=== PATIENT | male | born 1950 | race Caucasian/White ===

== ENCOUNTER → 2018-09-06 | Outpatient (CLI) | payer MEDICARE | END | disposition home or self-care (01) | LOC: LABPAT 09:47 | PROVIDERS: ATTEND Orthopaedic Surgery | DX: Z01.812 Encounter for preprocedural laboratory examination (principal) | CPT/HCPCS: 87070 ==

== ENCOUNTER 2018-09-13 09:19 | Inpatient (IN) | payer MEDICARE ==
[2018-09-09 10:50] VITALS: BMI 40.7
--- NOTE | 2018-09-12 16:11 | HP ---
HISTORY AND PHYSICAL REASON FOR ADMISSION: Surgery 09/13/2018 Caio Parra is a 68-year-old patient seen with symptomatic left knee osteoarthritis. We discussed treatment options with him. He elected to proceed with left total knee arthroplasty. Consent regarding the procedure was obtained. Medical clearance was provided by Dr. Elia Sanchez. Cardiac clearance was provided by Dr. Dunlap. PAST MEDICAL HISTORY: Cardiovascular disease, hypertension, insulin-dependent diabetes. PAST SURGICAL HISTORY: Cardiac catheterization with stent insertion, trigger finger release, cataract surgery. DAILY MEDICATIONS: Atorvastatin, Humalog insulin, isosorbide, losartan, Xarelto. ALLERGIES: AUGMENTIN, BIAXIN. SOCIAL HISTORY: Patient denies tobacco use. PHYSICAL EXAMINATION: Evaluation of the left knee is range of motion negative 2 to 120 degrees. Tenderness medial joint line. Crepitus medial patellofemoral compartments range of motion. Ligaments stable. Hip rotation without pain. Distal neurovascular exam intact. RADIOGRAPHS: Radiographs of the left knee revealed moderately severe medial compartment osteoarthritis and mild patellofemoral compartment osteoarthritis. IMPRESSION: 1. Left knee osteoarthritis. 2. Cardiovascular disease. 3. Insulin-dependent diabetes. 4. Hyperlipidemia. PLAN: Left total knee arthroplasty. Surgery scheduled for 09/13/2018. MMODL / IJN: [id number] /
[~2018-09-13 09:19] MED LIST: ACETAMINOPHEN TAB 500 MG TAB PO ONE; DEXAMETHASONE SOD PHOSPHATE 10 MG/ML 1 ML VIAL IV ONE; HYDROmorphone 0.5 MG/0.5 ML SYRINGE IVP PRN; LACTATED RINGERS 1,000 ML IV SCH; LIDOCAINE 1% 20 ML VIAL (10MG/ML) FOR IV START INTRADERMA PRN; MELOXICAM 7.5 MG TAB PO ONE; MIDAZOLAM (PF) 2 MG/2 ML VIAL IV PRN; ONDANSETRON 4 MG/2 ML VIAL IVP ONE; SCOPOLAMINE 1.5MG/72HR PATCH TRANSDERM ONE; TRANEXAMIC ACID 1,000 MG in SODIUM CHLORIDE 0.9% 50 ML IVPB ONE; VANCOMYCIN 1,750 MG in SODIUM CHLORIDE 0.9% 500 ML 500 ML IVPB ONE; ceFAZolin IN SWFI 2 GM/20 ML SYRINGE IVP ONE
[2018-09-13] MEDS ORDERED: ROPIVACAINE 1,100 MG, SODIUM CHLORIDE 0.9% 500 ML 330 ML MISCELLANE PRN ×4 (10:32→13:45)
[2018-09-13 11:29] LABS: Glucose,Whole Blood 183 mg/dL (75-99)
[2018-09-13] MEDS ORDERED: SUCCINYLCHOLINE CHLORIDE 100 MG/5 ML SYR IV ONE (13:00)
[2018-09-13] MEDS ORDERED: ONDANSETRON 4 MG/2 ML VIAL ONE (13:00)
[2018-09-13] MEDS ORDERED: ePHEDrine SULFATE/0.9% NACL/PF 50 MG/5 ML SYRINGE IV ONE (13:00)
[2018-09-13] MEDS ORDERED: PROPOFOL 10 MG/ML 20 ML VIAL IV ONE (13:00)
[2018-09-13] MEDS ORDERED: fentaNYL (PF) 50 MCG/ML 2 ML AMP ONE (13:00)
[2018-09-13] MEDS ORDERED: MIDAZOLAM 2 MG/2 ML VIAL ONE (13:00)
[2018-09-13] MEDS ORDERED: HYDROmorphone (PF) 1 MG/ML ONE (13:00)
[2018-09-13] MEDS ORDERED: LIDOCAINE 1% INJ 10MG/ML (20 ML MDV) ONE (13:00)
[2018-09-13] MEDS ORDERED: ROPIVACAINE 246.25 MG, EPINEPHrine 0.5 MG, KETOROLAC 30 MG, cloNIDine HCL/PF 80 MCG, WA... MISCELLANE ONE ×5 (13:50)
--- NOTE | 2018-09-13 14:05 | P.ONQ ---
Anesthesiology Proc Note - PNB - Peripheral Nerve Block Performed Left Adductor Canal Infusion Time Out Performed: Yes Indication: Acute Post-Operative Pain, Dx/Pain Location (Left Knee Pain), Requested by physician Sedation Type: Sedate with meaningful contact maintained Preparation: Sterile Prep Position: Supine Catheter: Indwelling Needle Types: On-Q Needle Size: 100mm (4") Needle Gauge: 21 Technique: Ultrasound Injectate: 0.5% Ropivacaine (see comment for volume) (20ml) Blood Aspirated: No Pain Paresthesia on Injection Noted: No Resistance on Injection: Normal Events: Other (see comment) (atraumatic)
[2018-09-13 14:11] LABS: Glucose,Whole Blood 211 mg/dL (75-99)
[2018-09-13] MEDS ORDERED: ceFAZolin 3,000 MG in SODIUM CHLORIDE 0.9% IRRIGATIO 3,000 ML IRRIGATION ONE (14:37)
[2018-09-13] MEDS ORDERED: HYDROcodone/APAP 5-325MG 1 EACH TAB PO PRN (15:32)
[2018-09-13] MEDS ORDERED: HYDROmorphone 1 MG/ML 1 ML SYRINGE IVP PRN ×4 (15:32→18:33)
[2018-09-13] MEDS ORDERED: ONDANSETRON 4 MG/2 ML VIAL IVP PRN (15:32)
[2018-09-13] MEDS ORDERED: HYDROcodone/APAP 7.5-325MG 1 EACH TAB PO PRN (15:32)
[2018-09-13] MEDS ORDERED: NALOXONE 0.4 MG/ML 1 ML VIAL IV PRN (15:32)
--- NOTE | 2018-09-13 15:32 | P.OP ---
Date of Procedure: 09/13/18 Preoperative Diagnosis: Left knee osteoarthritis Postoperative Diagnosis: Left knee osteoarthritis Procedure(s) Performed: Left total knee arthroplasty Implants: 1. Microport evolution size 7 left CS cemented femur 2. Microport evolution size 7 left cemented tibial baseplate 3. Microport evolution MP size 7 left 10 mm polyethylene insert 4. Microport advance 41 millimeter all polyethylene cemented patella Anesthesia: GETA, regional (Adductor canal catheter), local Surgeon: Paco Martinez Ssrs Report Developer #1: Dontrell Barcenas Estimated Blood Loss (ml): 50 Pathology: other (Bone) Condition: stable Disposition: PACU Indications for Procedure: 68-year-old patient seen was symptomatic left knee osteoarthritis. After treatment options were discussed, he elected to proceed with total knee arthroplasty. Operative Findings: See description of procedure Description of Procedure: Patient was taken to the operative suite after having an adductor canal catheter placed by the department of anesthesia. Patient underwent a general anesthetic by the department of anesthesia. Patient was given preoperative IV intake antibiotics and TXA. A well-padded tourniquet was placed about the left lower extremity. The lower extremity was then prepped and draped in the normal sterile orthopedic fashion. The extremity was elevated, a tourniquet was insufflated to 300. A standard anterior incision was made sharply through skin. Dissection was taken down through the subcutaneous soft tissues down to the extensor mechanism. A medial arthrotomy was performed, patella was everted and knee was flexed. There was advanced osteoarthritis noted. I introduced my distal intramedullary femoral drill. I then introduced the distal femoral cutting jig. Fitz PHAM secured the cutting jig with 2 pins. I held retractors in position while Fitz PHAM performed the distal femoral resection through the guide area we now removed her distal femoral cutting guide. We now placed our 4-in-1 femoral cutting block and positioned and it was secured with 2 pins by Fitz PHAM while I held the block in position. The distal femoral finishing was now completed. A proximal tibial cutting guide was positioned. I held the guide in the appropriate position with both hands well Fitz PHAM inserted stabilizing pins into the guide. Proximal tibial cut was made. We now placed a trial femoral component into position, along with an appropriate size tibial tray and insert. We now took the knee through range of motion and had full extension good flexion and good overall soft tissue balance noted. The patella was everted and stabilized with 2 towel clips held by Fitz PHAM while I performed a flush with patellar quad tendon utilizing a fresh sawblade. We templated the patella, appropriate drill holes were made. An appropriate trial patella was positioned, knee was taken through full range of motion with the patella tracking very nicely. The trial patella was removed. Drill holes were made through the femoral component. All trial components were removed after marking off the appropriate rotation of the tibia. Retractors were now positioned along the proximal tibia. An appropriate keel punch was made with the appropriate size tibial guide by myself on Fitz PHAM assisted by holding retractors. At this point appropriate size implants were chosen and opened. The joint was irrigated copiously with pulse lavage mechanical irrigation. The posterior capsule was infiltrated with local analgesic. The wound was irrigated with pulse lavage mechanical irrigation. We mixed antibiotic methylmethacrylate. We placed the knee into flexion. We placed multiple retractors assisted by Fitz PHAM to expose the proximal tibia. Once the methyl methacrylate was ready, the tibial component was cemented into place removing any excess methylmethacrylate form by both myself and Fitz PHAM. The femoral component was cemented into place removing the removing any excess methylmethacrylate performed by both myself and Fitz PAHM. We then inserted the appropriate size polyethylene tibial insert. We made sure that it was locked into position. We took the knee into full extension, and then back in a flexion making sure we had removed any excess methylmethacrylate. The patellar component was then cemented down and secured with clamp. Excess methylmethacrylate removed. We kept the knee in full extension, patellar clamp in position until methylmethacrylate had hardened. Once it had hardened the patellar clamp was removed. The knee was taken through full range of motion. The patella tracked nicely. There was good soft tissue balancing. The tourniquet was now released. Additional hemostasis was achieved via electrocautery. A second gram of TXA was given. The wound again was irrigated with pulse lavage mechanical irrigation. The superficial soft tissues were infiltrated local analgesic. The extensor mechanism was repaired with Vicryl. We checked the repair with range of motion and it was stable. The subcutaneous soft tissues were repaired with Vicryl in layers. The skin was approximated with pernio/Dermabond. Sterile dressings were applied followed by loose web roll and Gama bandage. The patient was transferred to a bed, and taken to recovery in stable and satisfactory condition. Fitz PHAM assisted with this complex procedure.
[2018-09-13] MEDS ORDERED: INSULIN ASPART 100 UNIT/ML 1 ML 10 ML VIAL SQ ONE (16:09)
[2018-09-13 16:12] LABS: Glucose,Whole Blood 263 mg/dL (75-99)
--- NOTE | 2018-09-13 17:53 | XR ---
EXAMINATION TYPE: XR knee limited LT DATE OF EXAM: 09/13/2018 COMPARISON: NONE HISTORY: Stopped knee TECHNIQUE: 2 views FINDINGS: There is left knee prosthesis. Components are in anatomic position. IMPRESSION: No complicating process seen.
--- NOTE | 2018-09-13 18:44 | P.CONS ---
History of Present Illness - Reason for Consult Consult date: 09/13/18 Medical management Requesting physician: Paco Martinez - Chief Complaint Left knee pain - History of Present Illness 60-year-old male with past medical history of hypertension, diabetes, coronary artery disease status post 5 stents, atrial fibrillation, osteoarthritis of the knees presents to [facility] for elective left total knee replacement. Patient reports severe osteoarthritis in the left knee," [id number]" which prompted the patient to undergo surgical intervention. We are consulted for medical management postoperatively. Patient was seen and examined after his procedure. His is at bedside. Patient reports good pain control at this time. states that the patient just underwent surgery and is feeling groggy from the anesthesia. Pain is 2 out of 10 in severity. Past Medical History Past Medical History: Atrial Fibrillation, Coronary Artery Disease (CAD), Diabetes Mellitus, Hyperlipidemia, Hypertension, Osteoarthritis (OA), Renal Disease, Seizure Disorder Additional Past Medical History / Comment(s): HX OF SEIZURE X 1 (OVER 25 YEARS AGO.).,BLIND LEFT EYE., PATIENT STATES HOSPITALIZED AT [facility] FOR CHEST PAIN AND HEART CATH IN AUGUST 2018-STATES HE FOLLOWED UP WITH DR JACK . History of Any Multi-Drug Resistant Organisms: None Reported Past Surgical History: Heart Catheterization, Heart Catheterization With Stent, Orthopedic Surgery Additional Past Surgical History / Comment(s): trigger finger release, jhonny cataracts, left eye multiple surgeries after cataract removed, CARDIAC CATH WITH 5 STENTS , LEFT SHOULDER SURGERY. HEART CATH AUG 2018 Past Anesthesia/Blood Transfusion Reactions: Previous Problems w/ Anesthesia, Postoperative Nausea & Vomiting (PONV) Additional Past Anesthesia/Blood Transfusion Reaction / Comm: "hard time waking up" Date of Last Stent Placement:: 2003 Past Psychological History: No Psychological Hx Reported Smoking Status: Never smoker Past Alcohol Use History: Occasional Past Drug Use History: None Reported - Past Family History Mother Family Medical History: No Reported History Medications and Allergies Home Medications Medication Instructions Recorded Confirmed Type Aspirin 325 mg PO DAILY 10/22/15 09/13/18 History Atorvastatin Calcium [Lipitor] 80 mg PO HS 10/22/15 09/13/18 History Brimonidine Tartrate/Timolol 1 drop RIGHT EYE BID 10/22/15 09/13/18 History [Combigan 0.2%/0.5% Ophth Soln] Brinzolamide [Azopt 1% Ophth Susp] 1 drop RIGHT EYE BID 10/22/15 09/13/18 History Fish Oil/Dha/Epa [Fish Oil 1,200 1 each PO DAILY 10/22/15 09/13/18 History mg Fish Oil] Insulin Aspart [NovoLOG] 0 unit SQ ACHS PRN 10/22/15 09/13/18 History Insulin NPH Human Isophane 25 unit SQ BID 10/22/15 09/13/18 History [NovoLIN N] Isosorbide Mononitrate ER [Imdur] 60 mg PO DAILY 10/22/15 09/13/18 History Metoprolol Tartrate [Lopressor] 25 mg PO BID 10/22/15 09/13/18 History Multivitamins, Thera [Theragran] 1 each PO DAILY 10/22/15 09/13/18 History Vits A,C,E/Lutein/Minerals 1 each PO DAILY 10/22/15 09/13/18 History [Ocuvite with Lutein Tablet] Calcitriol 0.25 mcg PO JOSHUA 09/09/18 09/13/18 History Furosemide [Lasix] 20 mg PO DAILY 09/09/18 09/13/18 History Losartan [Cozaar] 50 mg PO DAILY 09/09/18 09/13/18 History Magnesium Oxide [Mag-Ox] 400 mg PO DAILY 09/09/18 09/13/18 History Rivaroxaban [Xarelto] 20 mg PO PC-SUPPER 09/09/18 09/13/18 History Allergies Allergy/AdvReac Type Severity Reaction Status Date / Time ampicillin Allergy "sleepy" Verified 09/13/18 16:26 clarithromycin [From Biaxin] Allergy "sleepy" Verified 09/13/18 16:26 Physical Exam Vitals: Vital Signs Temp Pulse Pulse Resp BP BP Pulse Ox 09/13/18 17:00 82 16 148/67 100 09/13/18 16:45 87 18 137/64 100 09/13/18 16:30 86 18 143/65 100 09/13/18 16:15 91 18 148/67 100 09/13/18 16:00 89 20 124/59 100 09/13/18 15:44 98.2 F 105 H 24 146/66 98 09/13/18 11:58 61 14 137/69 100 09/13/18 11:17 97.9 F 70 18 152/71 99 09/13/18 10:54 97.9 F 70 18 152/71 99 Intake and Output 09/13/18 09/13/18 09/13/18 06:59 14:59 22:59 Intake Total 1601 100 Output Total 50 Balance 1601 50 Intake: IV 1601 100 Output: Estimated Blood Loss 50 Other: Weight 125.191 kg General: [non toxic], [groggy], [appears at stated age] Derm: [warm], [dry] Head: [atraumatic], [normocephalic], [symmetric] Eyes: [EOMI], [no lid lag], [anicteric sclera] Mouth: [no lip lesion], [mucus membranes moist] Cardiovascular: [S1S2 reg], [no murmur], [positive DP pulse bilateral] Lungs: [CTA bilateral], [no rhonchi, no rales] , [no accessory muscle use] Abdominal: [soft], [ nontender to palpation], [no guarding], [no appreciable organomegaly] Ext: [no gross muscle atrophy], [no edema], [left knee wrapped] Psych: [Alert], [oriented], [appropriate affect] Results Labs: Abnormal Lab Results - Last 24 Hours (Table) 09/13/18 09/13/18 09/13/18 Range/Units 11:05 14:06 16:07 POC Glucose (mg/dL) 183 H 211 H 263 H (75-99) mg/dL Assessment and Plan Assessment: Assessment and Plan 1. L knee severe OA: s/p L total knee arthroplasty POD 0. Knee x-ray after the procedure show no complicating process. Pain management with [facility] 5 1 tab PRN for pain 1-5, [facility] 7.5 PRN for pain 6-10 and Dilaudid 0.5 mg IV Q3 PRN for breakthrough. Start Meloxicam 7.5 mg PO QD. Neurochecks. Elevated LLE. Weight bearing as per Ortho recommendations. Plans for home rehab as per patient. FU PT and OT consult, Orthopedic Sx 2. Diabetes Mellitus: POC glucose 263. Takes NPH 25 units BID with SSI. Will start sliding scale tonight, diet to fully resume tomorrow. Diabetic diet. Accuchecks. Hypoglycemic precautions. 3. Hypertension: BP 148/67. Continue Metoprolol 25 mg PO BID, Losartan 50 mg PO QD, Imdur 60 mg PO QD. Monitor vitals, adjust medications as necessary. 4. Atrial fibrillation: Rate controlled with Metoprolol 25 mg PO BID. Will resume AC with Xarelto when OK with Ortho. Telemetry monitoring. Keep K > 4 and Mg > 2. 5. CAD: s/p 5 stents. Will resume ASA when OK with Ortho. Restart Lipitor 80 mg PO QHS. Continue beta milan and ARB. 6. CKD 3: Follows Nephrology outPT. Restart Calcitriol 0.25 mg PO QSu. Avoid nephrotoxins. Daily BMP 7. DVT/GI Prophylaxis: Lovenox 30 mg SUBCUT BID.
[2018-09-13] MEDS: SODIUM CHLORIDE 0.9% 1,000 ML IV SCH (19:23)
[2018-09-13] MEDS: INSULIN ASPART 100 UNIT/ML 1 ML 10 ML VIAL SQ SCH ×2 (20:12→20:30)
[2018-09-13 20:22] LABS: Glucose,Whole Blood 302 mg/dL (75-99)
[2018-09-13] MEDS: METOPROLOL TARTRATE 25 MG TAB PO SCH (20:30)
[2018-09-13] MEDS: ATORVASTATIN 80 MG TAB PO SCH (20:30)
[2018-09-14] MEDS: SODIUM CHLORIDE 0.9% 1,000 ML IV SCH ×2 (05:57→15:59)
--- NOTE | 2018-09-14 07:02 | P.PN ---
Progress Note - Text Progress Note Date: 09/14/18 Patient is postop day 1 left total knee arthroplasty abductor canal catheter day #2. VAS is a 1 out of 10 in severity. Patient otherwise is some mild suprapatellar soreness. No motor sensory deficits. Has been up to ambulate with assistance, tolerating diet well. Plan is to continue with current therapy
[2018-09-14 07:33] LABS: Glucose,Whole Blood 402 mg/dL (75-99)
[2018-09-14] MEDS: INSULIN ASPART 100 UNIT/ML 1 ML 10 ML VIAL SQ SCH ×4 (07:54→20:48)
[2018-09-14] MEDS: FUROSEMIDE 20 MG TAB PO SCH (09:28)
[2018-09-14] MEDS: MELOXICAM 7.5 MG TAB PO SCH (09:28)
[2018-09-14] MEDS: ENOXAPARIN 30 MG/0.3 ML SYRINGE SQ SCH ×2 (09:28→20:47)
[2018-09-14] MEDS: ISOSORBIDE MONONITRATE ER 60 MG TAB.ER.24H PO SCH (09:28)
[2018-09-14] MEDS: METOPROLOL TARTRATE 25 MG TAB PO SCH ×2 (09:28→20:47)
[2018-09-14] MEDS: LOSARTAN 50 MG TAB PO SCH (09:28)
[2018-09-14 10:01] LABS: Basophils % (A) 0 %; Eosinophils % (A) 0 %; HGB 11.6 gm/dL (13.0-17.5); Lymphocytes # (A) 0.7 k/uL (1.0-4.8); Lymphocytes % (A) 6 %; MCH 28.8 pg (25.0-35.0); MCHC 31.5 g/dL (31.0-37.0); MCV 91.5 fL (80.0-100.0); Mean Platelet Volume 7.4; Monocytes # (A) 0.8 k/uL (0-1.0); Monocytes % (A) 6 %; Neutrophils # (A) 10.7 k/uL (1.3-7.7); Neutrophils % (A) 87 %; Platelet Count 202 k/uL (150-450); RBC 4.04 m/uL (4.30-5.90); RDW 13.1 % (11.5-15.5); WBC 12.3 k/uL (3.8-10.6)
[2018-09-14] MEDS: INSULIN NPH 300 UNIT/3 ML VIAL SQ SCH ×2 (11:13→20:49)
--- NOTE | 2018-09-14 11:13 | P.PN ---
Subjective Progress Note Date: 09/14/18 Principal diagnosis: Status post left total knee arthroplasty Patient seen today resting in his hospital bed, his is present at bedside. He appears comfortable. He is ambulating minimally with therapy. He has urinated on its own. He denies any chest pain or shortness of breath. Objective - Vital Signs Vital signs: Vital Signs Temp 98.3 F 09/14/18 08:21 Pulse 100 09/14/18 08:21 Resp 14 09/14/18 08:21 BP 138/68 09/14/18 08:21 Pulse Ox 98 09/14/18 08:21 Intake & Output 09/13/18 09/14/18 09/14/18 18:59 06:59 18:59 Intake Total 1701 1040 Output Total 50 Balance 1651 1040 Weight 125.191 kg Intake: IV 1701 Intake, IV Titration 1040 Amount Sodium Chloride 0.9% 1, 1040 000 ml @ 80 mls/hr IV . [id number] [facility] Rx#:[id number] Output: Estimated Blood Loss 50 Other: Voiding Method Urinal # Voids 2 - Exam Lower extremity: Incision is clean, dry, and intact. The exofin fusion tape is in good condition. There is minimal soft tissue swelling and ecchymosis surrounding the medial and lateral aspects of the incision. Calf is soft, no tenderness with palpation. Plantar flexion, dorsiflexion, EHL, FHL are intact. Sensory exam to light touch throughout the extremity is intact, dorsal pedis pulses 2+. - Labs CBC & Chem 7: 09/14/18 09:36 Labs: Abnormal Lab Results - Last 24 Hours (Table) 09/13/18 09/13/18 09/13/18 Range/Units 11:05 14:06 16:07 WBC (3.8-10.6) k/uL RBC (4.30-5.90) m/uL Hgb (13.0-17.5) gm/dL Hct (39.0-53.0) % Neutrophils # (1.3-7.7) k/uL Lymphocytes # (1.0-4.8) k/uL POC Glucose (mg/dL) 183 H 211 H 263 H (75-99) mg/dL 09/13/18 09/14/18 09/14/18 Range/Units 20:11 07:31 09:36 WBC 12.3 H (3.8-10.6) k/uL RBC 4.04 L (4.30-5.90) m/uL Hgb 11.6 L (13.0-17.5) gm/dL Hct 37.0 L (39.0-53.0) % Neutrophils # 10.7 H (1.3-7.7) k/uL Lymphocytes # 0.7 L (1.0-4.8) k/uL POC Glucose (mg/dL) 302 H 402 H (75-99) mg/dL Assessment and Plan Plan: Assessment: Postoperative day #1 status post left total knee arthroplasty Plan: Pain control, continue current medication GI and DVT prophylaxis, patient received Lovenox 30 mg subcu today. We'll restart his aspirin and Xarelto tomorrow Daily dressing changes Continue her physical therapy Medical recommendations Discharge planning: Patient likely be discharged home tomorrow Time with Patient: Less than 30
--- NOTE | 2018-09-14 11:42 | P.PN ---
Subjective Progress Note Date: 09/14/18 Principal diagnosis: Medical management after left knee replacement Patient seen and examined. No acute events overnight. Patient reports pain being well controlled, currently 0 out of 10. Patient states that he is concerned about his blood sugar, found it was 400 this morning. He denies any confusion, chest pain, shortness of breath or palpitations. Objective - Vital Signs Vital signs: Vital Signs Temp 98.3 F 09/14/18 08:21 Pulse 100 09/14/18 08:21 Resp 14 09/14/18 08:21 BP 138/68 09/14/18 08:21 Pulse Ox 98 09/14/18 08:21 Intake & Output 09/13/18 09/14/18 09/14/18 18:59 06:59 18:59 Intake Total 1701 1040 240 Output Total 50 Balance 1651 1040 240 Weight 125.191 kg 125.191 kg Intake: IV 1701 Intake, IV Titration 1040 Amount Sodium Chloride 0.9% 1, 1040 000 ml @ 80 mls/hr IV . [id number] [facility] Rx#:[id number] Oral 240 Output: Estimated Blood Loss 50 Other: Voiding Method Urinal Toilet Urinal # Voids 2 - Exam General: [non toxic], [groggy], [appears at stated age] Derm: [warm], [dry] Head: [atraumatic], [normocephalic], [symmetric] Eyes: [EOMI], [no lid lag], [anicteric sclera] Mouth: [no lip lesion], [mucus membranes moist] Cardiovascular: [S1S2 reg], [no murmur], [positive DP pulse bilateral] Lungs: [CTA bilateral], [no rhonchi, no rales] , [no accessory muscle use] Abdominal: [soft], [ nontender to palpation], [no guarding], [no appreciable organomegaly] Ext: [no gross muscle atrophy], [no edema], [left knee limited range of motion due to pain, no erythema] Psych: [Alert], [oriented], [appropriate affect] - Labs CBC & Chem 7: 09/14/18 09:36 Labs: Abnormal Lab Results - Last 24 Hours (Table) 09/13/18 09/13/18 09/13/18 Range/Units 14:06 16:07 20:11 WBC (3.8-10.6) k/uL RBC (4.30-5.90) m/uL Hgb (13.0-17.5) gm/dL Hct (39.0-53.0) % Neutrophils # (1.3-7.7) k/uL Lymphocytes # (1.0-4.8) k/uL POC Glucose (mg/dL) 211 H 263 H 302 H (75-99) mg/dL 09/14/18 09/14/18 Range/Units 07:31 09:36 WBC 12.3 H (3.8-10.6) k/uL RBC 4.04 L (4.30-5.90) m/uL Hgb 11.6 L (13.0-17.5) gm/dL Hct 37.0 L (39.0-53.0) % Neutrophils # 10.7 H (1.3-7.7) k/uL Lymphocytes # 0.7 L (1.0-4.8) k/uL POC Glucose (mg/dL) 402 H (75-99) mg/dL Assessment and Plan Assessment: Assessment and Plan 1. L knee severe OA: s/p L total knee arthroplasty POD 1. Knee x-ray after the procedure show no complicating process. Pain management with [place] 5 1 tab PRN for pain 1-5, [place] 7.5 PRN for pain 6-10 and Dilaudid 0.5 mg IV Q3 PRN for breakthrough. Start Meloxicam 7.5 mg PO QD. Neurochecks. Elevated LLE. Weight bearing as per Ortho recommendations. Plans for home rehab as per patient. FU PT and OT consult, Orthopedic Sx 2. Diabetes Mellitus: POC glucose 402. Will restart NPH 25 units BID with SSI. Diabetic diet. Accuchecks. Hypoglycemic precautions. 3. Hypertension: BP 138/68. Continue Metoprolol 25 mg PO BID, Losartan 50 mg PO QD, Imdur 60 mg PO QD. Monitor vitals, adjust medications as necessary. 4. Atrial fibrillation: Rate controlled with Metoprolol 25 mg PO BID. AC with Xarelto 20 mg PO QHS as per Ortho. Telemetry monitoring. Keep K > 4 and Mg > 2. 5. CAD: s/p 5 stents. Start ASA 325 mg PO QD as per Ortho. Restart Lipitor 80 mg PO QHS. Continue beta milan and ARB. 6. CKD 3: Follows Nephrology outPT. Restart Calcitriol 0.25 mg PO QSu. Avoid nephrotoxins. 7. DVT/GI Prophylaxis: Lovenox 30 mg SUBCUT BID.
[2018-09-14 12:14] LABS: Glucose,Whole Blood 387 mg/dL (75-99)
[2018-09-14] MEDS ORDERED: INSULIN ASPART 100 UNIT/ML 1 ML 10 ML VIAL SQ ONE ×2 (17:20→23:22)
[2018-09-14 17:23] LABS: Glucose,Whole Blood 438 mg/dL (75-99)
[2018-09-14 20:03] LABS: Glucose,Whole Blood 466 mg/dL (75-99)
[2018-09-14] MEDS: ATORVASTATIN 80 MG TAB PO SCH (20:48)
[2018-09-14] MEDS ORDERED: INSULIN NPH 300 UNIT/3 ML VIAL SQ SCH (21:00)
[2018-09-14 22:56] LABS: Glucose,Whole Blood 388 mg/dL (75-99)
[2018-09-15 02:15] LABS: Glucose,Whole Blood 269 mg/dL (75-99)
[2018-09-15] MEDS: SODIUM CHLORIDE 0.9% 1,000 ML IV SCH ×2 (05:09→18:21)
[2018-09-15 06:53] LABS: Glucose,Whole Blood 268 mg/dL (75-99)
[2018-09-15] MEDS: INSULIN ASPART 100 UNIT/ML 1 ML 10 ML VIAL SQ SCH ×4 (07:45→22:06)
[2018-09-15] MEDS: INSULIN NPH 300 UNIT/3 ML VIAL SQ SCH ×2 (07:54→22:09)
[2018-09-15] MEDS ORDERED: KETOROLAC 30 MG/ML 1 ML VIAL IVP STA (10:19)
--- NOTE | 2018-09-15 10:27 | P.PN ---
Subjective Progress Note Date: 09/15/18 Principal diagnosis: Medical management after knee replacement Patient was seen and examined. No acute events overnight. Patient continues to be concerned about his elevated blood sugars, this morning blood glucose in the mid 200s. Otherwise, patient complains of knee pain, 3 out of 10 in severity. States that he has a high threshold. He denies a shortness of breath , chest pain or palpitations. Objective - Vital Signs Vital signs: Vital Signs Temp 98.6 F 09/15/18 07:47 Pulse 95 09/15/18 07:47 Resp 16 09/15/18 07:47 BP 160/75 09/15/18 07:47 Pulse Ox 95 09/15/18 07:47 Intake & Output 09/14/18 09/15/18 09/15/18 18:59 06:59 18:59 Intake Total 1680 960 Balance 1680 960 Weight 125.191 kg Intake: Intake, IV Titration 400 Amount Sodium Chloride 0.9% 1, 400 000 ml @ 80 mls/hr IV . [id number] [facility] Rx#:[id number] Oral 1280 960 Other: Voiding Method Toilet Toilet Urinal Urinal # Voids 2 2 - Exam General: [non toxic], [groggy], [appears at stated age] Derm: [warm], [dry] Head: [atraumatic], [normocephalic], [symmetric] Eyes: [EOMI], [no lid lag], [anicteric sclera] Mouth: [no lip lesion], [mucus membranes moist] Cardiovascular: [S1S2 reg], [no murmur], [positive DP pulse bilateral] Lungs: [CTA bilateral], [no rhonchi, no rales] , [no accessory muscle use] Abdominal: [soft], [ nontender to palpation], [no guarding], [no appreciable organomegaly] Ext: [no gross muscle atrophy], [1+ pitting edema left lower extremity], [left knee limited range of motion due to pain, no erythema] Psych: [Alert], [oriented], [appropriate affect] - Labs CBC & Chem 7: 09/14/18 09:36 Labs: Abnormal Lab Results - Last 24 Hours (Table) 09/14/18 09/14/18 09/14/18 Range/Units 09:36 12:02 17:12 WBC 12.3 H (3.8-10.6) k/uL RBC 4.04 L (4.30-5.90) m/uL Hgb 11.6 L (13.0-17.5) gm/dL Hct 37.0 L (39.0-53.0) % Neutrophils # 10.7 H (1.3-7.7) k/uL Lymphocytes # 0.7 L (1.0-4.8) k/uL POC Glucose (mg/dL) 387 H 438 H (75-99) mg/dL 09/14/18 09/14/18 09/15/18 Range/Units 19:58 22:55 02:12 WBC (3.8-10.6) k/uL RBC (4.30-5.90) m/uL Hgb (13.0-17.5) gm/dL Hct (39.0-53.0) % Neutrophils # (1.3-7.7) k/uL Lymphocytes # (1.0-4.8) k/uL POC Glucose (mg/dL) 466 H 388 H 269 H (75-99) mg/dL 09/15/18 Range/Units 06:51 WBC (3.8-10.6) k/uL RBC (4.30-5.90) m/uL Hgb (13.0-17.5) gm/dL Hct (39.0-53.0) % Neutrophils # (1.3-7.7) k/uL Lymphocytes # (1.0-4.8) k/uL POC Glucose (mg/dL) 268 H (75-99) mg/dL Assessment and Plan Assessment: Assessment and Plan 1. L knee severe OA: s/p L total knee arthroplasty POD 2. Knee x-ray after the procedure show no complicating process. Pain management with [place] 5 1 tab PRN for pain 1-5, [place] 7.5 PRN for pain 6-10 and Dilaudid 0.5 mg IV Q3 PRN for breakthrough. Start Meloxicam 7.5 mg PO QD. Neurochecks. Elevated LLE. Weight bearing as per Ortho recommendations. Plans for home rehab as per patient. FU PT and OT consult, Orthopedic Sx 2. Diabetes Mellitus: POC glucose 268. Continue NPH 25 units BID. Change sliding scale from low to medium for better glycemic control. Diabetic diet. Accuchecks. Hypoglycemic precautions. 3. Hypertension: BP 160/75. Continue Metoprolol 25 mg PO BID, Losartan 50 mg PO QD, Imdur 60 mg PO QD. Monitor vitals, adjust medications as necessary. 4. Atrial fibrillation: Rate controlled with Metoprolol 25 mg PO BID. AC with Xarelto 20 mg PO QHS as per Ortho. Telemetry monitoring. Keep K > 4 and Mg > 2. 5. CAD: s/p 5 stents. Start ASA 325 mg PO QD as per Ortho. Restart Lipitor 80 mg PO QHS. Continue beta milan and ARB. 6. CKD 3: Follows Nephrology outPT. Restart Calcitriol 0.25 mg PO QSu. Avoid nephrotoxins. 7. DVT/GI Prophylaxis: Lovenox 30 mg SUBCUT BID. Patient worked with PT yesterday. Plan is to go home with home rehab. Pain well-controlled. Needs better glycemic control. Likely discharge today or tomorrow as per Ortho.
--- NOTE | 2018-09-15 11:08 | P.PN ---
Subjective Progress Note Date: 09/15/18 Principal diagnosis: Status post left total knee arthroplasty Patient seen today resting in his hospital bed, his is present at bedside, he appears comfortable. Patient has concerns at home with regards to his current bed, it is on the third floor of his house which requires multiple stairs. He is also having difficulty lying flat at this time, does reproduce some discomfort in that knee. He denies any chest pain or shortness of breath. Objective - Vital Signs Vital signs: Vital Signs Temp 98.6 F 09/15/18 07:47 Pulse 95 09/15/18 07:47 Resp 16 09/15/18 07:47 BP 160/75 09/15/18 07:47 Pulse Ox 95 09/15/18 07:47 Intake & Output 09/14/18 09/15/18 09/15/18 18:59 06:59 18:59 Intake Total 1680 960 Balance 1680 960 Weight 125.191 kg Intake: Intake, IV Titration 400 Amount Sodium Chloride 0.9% 1, 400 000 ml @ 80 mls/hr IV . [id number] [facility] [place] Rx#:[id number] Oral 1280 960 Other: Voiding Method Toilet Toilet Urinal Urinal # Voids 2 2 - Exam Lower extremity: Incision is clean, dry, and intact. The exofin fusion tape is in good condition. There is minimal soft tissue swelling and ecchymosis surrounding the medial and lateral aspects of the incision. Calf is soft, no tenderness with palpation. Plantar flexion, dorsiflexion, EHL, FHL are intact. Sensory exam to light touch throughout the extremity is intact, dorsal pedis pulses 2+. - Labs CBC & Chem 7: 09/14/18 09:36 Labs: Abnormal Lab Results - Last 24 Hours (Table) 09/14/18 09/14/18 09/14/18 Range/Units 12:02 17:12 19:58 POC Glucose (mg/dL) 387 H 438 H 466 H (75-99) mg/dL 09/14/18 09/15/18 09/15/18 Range/Units 22:55 02:12 06:51 POC Glucose (mg/dL) 388 H 269 H 268 H (75-99) mg/dL Assessment and Plan Plan: Assessment: Postoperative day #2 status post left total knee arthroplasty Plan: Pain control, continue current medication GI and DVT prophylaxis, Xarelto has been restarted Daily dressing changes Continue her physical therapy Medical recommendations Due to patient's bedroom being on the third floor and having multiple stairs climb along with his difficulty lying flat, prescription was placed for a hospital bed. Case management is helping facilitate this prescription. Discharge planning: Possible discharge home today Time with Patient: Less than 30
[2018-09-15 11:43] LABS: Glucose,Whole Blood 276 mg/dL (75-99)
[2018-09-15] MEDS: ISOSORBIDE MONONITRATE ER 60 MG TAB.ER.24H PO SCH (12:10)
[2018-09-15] MEDS: ASPIRIN 325 MG TAB PO SCH (12:10)
[2018-09-15] MEDS: MELOXICAM 7.5 MG TAB PO SCH (12:10)
[2018-09-15] MEDS: METOPROLOL TARTRATE 25 MG TAB PO SCH ×2 (12:11→22:06)
[2018-09-15] MEDS: FUROSEMIDE 20 MG TAB PO SCH (12:12)
[2018-09-15] MEDS: LOSARTAN 50 MG TAB PO SCH (12:12)
[2018-09-15] MEDS: ENOXAPARIN 30 MG/0.3 ML SYRINGE SQ SCH (13:03)
[2018-09-15 17:17] LABS: Glucose,Whole Blood 357 mg/dL (75-99)
[2018-09-15] MEDS ORDERED: RIVAROXABAN 20 MG TAB PO SCH (17:30)
[2018-09-15] MEDS ORDERED: INSULIN ASPART 100 UNIT/ML 1 ML 10 ML VIAL SQ ONE (18:14)
[2018-09-15 21:58] LABS: Glucose,Whole Blood 205 mg/dL (75-99)
[2018-09-15] MEDS: ATORVASTATIN 80 MG TAB PO SCH (22:06)
[2018-09-16] MEDS: SODIUM CHLORIDE 0.9% 1,000 ML IV SCH (06:03)
[2018-09-16 07:13] LABS: Glucose,Whole Blood 183 mg/dL (75-99)
[2018-09-16 07:28] VITALS: BP 153/88; PULSE 100; RESP 18; TEMP 97.9
[2018-09-16] MEDS: MELOXICAM 7.5 MG TAB PO SCH (07:34)
[2018-09-16] MEDS: METOPROLOL TARTRATE 25 MG TAB PO SCH (07:35)
[2018-09-16] MEDS: LOSARTAN 50 MG TAB PO SCH (07:35)
[2018-09-16] MEDS: ISOSORBIDE MONONITRATE ER 60 MG TAB.ER.24H PO SCH (07:35)
[2018-09-16] MEDS: FUROSEMIDE 20 MG TAB PO SCH (07:35)
[2018-09-16] MEDS: ASPIRIN 325 MG TAB PO SCH (07:35)
[2018-09-16] MEDS: INSULIN NPH 300 UNIT/3 ML VIAL SQ SCH (07:36)
[2018-09-16] MEDS: INSULIN ASPART 100 UNIT/ML 1 ML 10 ML VIAL SQ SCH ×4 (07:37→11:42)
[2018-09-16 11:27] LABS: Glucose,Whole Blood 182 mg/dL (75-99)
--- NOTE | 2018-09-16 11:50 | P.PN ---
Subjective Progress Note Date: 09/16/18 Principal diagnosis: Status post left total knee arthroplasty Patient seen today resting in his hospital bed, his is present at bedside, he appears comfortable. He denies any chest pain or shortness of breath. Objective - Vital Signs Vital signs: Vital Signs Temp 97.9 F 09/16/18 07:00 Pulse 100 09/16/18 07:00 Resp 18 09/16/18 07:30 BP 153/88 09/16/18 07:00 Pulse Ox 95 09/16/18 07:00 Intake & Output 09/15/18 09/16/18 09/16/18 18:59 06:59 18:59 Intake Total 1080 Balance 1080 Intake: Oral 1080 Other: Voiding Method Toilet Toilet Toilet # Voids 3 - Exam Lower extremity: Incision is clean, dry, and intact. The exofin fusion tape is in good condition. There is minimal soft tissue swelling and ecchymosis surrounding the medial and lateral aspects of the incision. Calf is soft, no tenderness with palpation. Plantar flexion, dorsiflexion, EHL, FHL are intact. Sensory exam to light touch throughout the extremity is intact, dorsal pedis pulses 2+. - Labs CBC & Chem 7: 09/14/18 09:36 Labs: Abnormal Lab Results - Last 24 Hours (Table) 09/15/18 09/15/18 09/16/18 Range/Units 17:11 21:47 07:11 POC Glucose (mg/dL) 357 H 205 H 183 H (75-99) mg/dL 09/16/18 Range/Units 11:16 POC Glucose (mg/dL) 182 H (75-99) mg/dL Assessment and Plan Plan: Assessment: Postoperative day #3 status post left total knee arthroplasty Plan: Pain control, plan for dc home on [place] 5mg/325mg GI and DVT prophylaxis, Xarelto has been restarted Daily dressing changes Continue her physical therapy Medical recommendations Discharge planning: Possible discharge home today Time with Patient: Less than 30
--- NOTE | 2018-09-16 11:53 | P.DS ---
Providers Date of admission: 09/13/18 09:19 Expected date of discharge: 09/16/18 Attending physician: Paco Martinez Consults: 09/13/18 15:32 Consult Physician Routine Consulting Provider: Taj Crawley Consult Reason/Comments: Medical management Do you want consulting provider notified?: Yes Primary care physician: Elia Sanchez MD Hospital Course: Date of admission: 09/13/2018 Date of discharge: 09/16/2018 Admission diagnosis: Status post left total knee arthroplasty Discharge diagnosis: Same Attending physician: Dr. Martinez Surgical procedures: Left total knee arthroplasty Brief history: Patient is a 68-year-old male with a history of progressive primary left knee osteoarthritis. At this point patient has failed conservative treatment measures and has opted to proceed with a elective left total knee arthroplasty. Hospital course: Details of patient's surgery can be found in operative report. Patient tolerated the procedure well and was subsequently transported to orthopedic floor. Patient's orthopeidc and medical care was provided daily. Patient had daily laboratory tests performed for evaluation of overall blood counts. Patient had daily physical therapy to include strengthening range of motion as well as education with walker ambulation. Patient had daily CPM usage as part of their physical therapy program. Patient was treated with Lovenox and Xarelto for their postoperative DVT prophylaxis during their inpatient stay. Patient was noted to have a relatively uneventful postoperative course. Patient reported satisfactory pain control with oral pain medications by postoperative day 0. Patient showed satisfactory progress with physical therapy. Patient moved steadily through the program and had no difficulty meeting the goals by postoperative day 3. Given patient's otherwise satisfactory course and having met physical therapy goals, plan is to discharge patient home on postoperative day 3. Discharge condition/disposition: Patient will be discharged home in stable condition. Discharge medications: Instructions are given on resumption of patient's normal daily medications per primary care recommendation, in addition patient will be prescribed [place] 5 mg/325 mg, Meloxicam 7.5mg. Discharge instructions: 1. Wound care and infection precautions, keep incision dry and covered while showering, no lotions, creams, moisturizers. No soaking, tubs, pools, hottubs. Do not scrub over the incision. 2. Weight-bear as tolerated with walker / cane until follow-up. 3. Ice and elevate when necessary. Do not exceed 20 minutes per hour with ice pack. 4. Utilize compression sleeve until seen at first follow up appointment. 5. Visiting nursing care. 6. Home physical therapy including home CPM. 7. Pain meds and anticoagulants per prescription. 8. Pain medication has potential to cause constipation. Increase oral fluid and fiber intake. Contact primary care provider if you have not had a bowel movement within 48 hours after discharge 9. No anti-inflammatory medication until discussed at first post operative visit, this including Motrin, Aleve, Mobic, Diclofenac. 10. Follow up in office at 2 weeks postop with Fitz Barcenas PA-C 11. Follow up with your primary care doctor 7-10 days after discharge. 12. Contact [facility] with any questions, . Procedures: Left total knee arthroplasty Patient Condition at Discharge: Good Plan - Discharge Summary Discharge Rx Participant: Yes New Discharge Prescriptions: New Hydrocodone/Acetaminophen [[place] 5-325] 1 each PO Q6HR PRN #28 tab PRN Reason: Pain Meloxicam [Mobic] 7.5 mg PO DAILY #30 tab No Action Multivitamins, Thera [Theragran] 1 each PO DAILY Fish Oil/Dha/Epa [Fish Oil 1,200 mg Fish Oil] 1 each PO DAILY Aspirin 325 mg PO DAILY Brimonidine Tartrate/Timolol [Combigan 0.2%/0.5% Ophth Soln] 1 drop RIGHT EYE BID Brinzolamide [Azopt 1% Ophth Susp] 1 drop RIGHT EYE BID Metoprolol Tartrate [Lopressor] 25 mg PO BID Isosorbide Mononitrate ER [Imdur] 60 mg PO DAILY Insulin Aspart [NovoLOG] 0 unit SQ ACHS PRN PRN Reason: sliding scale Atorvastatin Calcium [Lipitor] 80 mg PO HS Insulin NPH Human Isophane [NovoLIN N] 25 unit SQ BID Vits A,C,E/Lutein/Minerals [Ocuvite with Lutein Tablet] 1 each PO DAILY Furosemide [Lasix] 20 mg PO DAILY Losartan [Cozaar] 50 mg PO DAILY Magnesium Oxide [Mag-Ox] 400 mg PO DAILY Rivaroxaban [Xarelto] 20 mg PO PC-SUPPER Calcitriol 0.25 mcg PO JOSHUA Discharge Medication List Aspirin 325 mg PO DAILY 10/22/15 [History] Atorvastatin Calcium [Lipitor] 80 mg PO HS 10/22/15 [History] Brimonidine Tartrate/Timolol [Combigan 0.2%/0.5% Ophth Soln] 1 drop RIGHT EYE BID 10/22/15 [History] Brinzolamide [Azopt 1% Ophth Susp] 1 drop RIGHT EYE BID 10/22/15 [History] Fish Oil/Dha/Epa [Fish Oil 1,200 mg Fish Oil] 1 each PO DAILY 10/22/15 [History] Insulin Aspart [NovoLOG] 0 unit SQ ACHS PRN 10/22/15 [History] Insulin NPH Human Isophane [NovoLIN N] 25 unit SQ BID 10/22/15 [History] Isosorbide Mononitrate ER [Imdur] 60 mg PO DAILY 10/22/15 [History] Metoprolol Tartrate [Lopressor] 25 mg PO BID 10/22/15 [History] Multivitamins, Thera [Theragran] 1 each PO DAILY 10/22/15 [History] Vits A,C,E/Lutein/Minerals [Ocuvite with Lutein Tablet] 1 each PO DAILY [History] Calcitriol 0.25 mcg PO JOSHUA 09/09/18 [History] Furosemide [Lasix] 20 mg PO DAILY 09/09/18 [History] Losartan [Cozaar] 50 mg PO DAILY 09/09/18 [History] Magnesium Oxide [Mag-Ox] 400 mg PO DAILY 09/09/18 [History] Rivaroxaban [Xarelto] 20 mg PO PC-SUPPER 09/09/18 [History] Hydrocodone/Acetaminophen [[place] 5-325] 1 each PO Q6HR PRN #28 tab 09/16/18 [Rx] Meloxicam [Mobic] 7.5 mg PO DAILY #30 tab 09/16/18 [Rx] Follow up Appointment(s)/Referral(s): Elia Sanchez MD [Primary Care Provider] - 1 Week (Office will call patient with follow up appt date and time. ) [facility] [NON-STAFF] - [facility], [NON-STAFF] - As Needed Dontrell Barcenas PAC [PHYSICIAN PIPE CLEANER] - 09/29/18 2:10 pm Activity/Diet/Wound Care/Special Instructions: Orthopedic Discharge Instructions: 1. Wound care and infection precautions, keep incision dry and covered while showering, no lotions, creams, moisturizers. No soaking, pools, hot tubs. Do not scrub over incision. 2. Weight-bear as tolerated with walker / cane until follow-up. 3. Ice and elevate when necessary. Do not exceed 20 minutes per hour with ice pack. 4. Utilize compression sleeve until seen at first follow up appointment. 5. Pain meds and anticoagulants per prescription. 6. Pain medication has potential to cause constipation. Increase oral fluid and fiber intake. Contact primary care provider if you have not had a bowel movement within 48 hours after discharge. 7. No anti-inflammatory medication until discussed at first post operative visit, this including Motrin, Aleve, Mobic, Diclofenac. 8. Follow up in office at 2 weeks postop with Fitz Barcenas PA-C 9. Follow up with your primary care doctor 7-10 days after discharge. 10. Contact [facility] with any questions, [phone]. 11. Hospital Bed - [facility] - will deliver to home Discharge Disposition: HOME WITH HOME HEALTH SERVICES
[2018-09-16] MEDS ORDERED: KETOROLAC 30 MG/ML 1 ML VIAL IVP STA (12:43)
--- NOTE | 2018-09-16 12:43 | P.PN ---
Subjective Progress Note Date: 09/16/18 Principal diagnosis: Medical management status post left knee replacement Patient was seen and examined. No acute events overnight. Patient complains of left knee pain, will control with medications. Pain is 1-2/10 in severity. He has no other complaints today. Looking for to going home. Objective - Vital Signs Vital signs: Vital Signs Temp 97.9 F 09/16/18 07:00 Pulse 100 09/16/18 07:00 Resp 18 09/16/18 07:30 BP 153/88 09/16/18 07:00 Pulse Ox 95 09/16/18 07:00 Intake & Output 09/15/18 09/16/18 09/16/18 18:59 06:59 18:59 Intake Total 1080 Balance 1080 Intake: Oral 1080 Other: Voiding Method Toilet Toilet Toilet # Voids 3 - Exam General: [non toxic], [groggy], [appears at stated age] Derm: [warm], [dry] Head: [atraumatic], [normocephalic], [symmetric] Eyes: [EOMI], [no lid lag], [anicteric sclera] Mouth: [no lip lesion], [mucus membranes moist] Cardiovascular: [S1S2 reg], [no murmur], [positive DP pulse bilateral] Lungs: [CTA bilateral], [no rhonchi, no rales] , [no accessory muscle use] Abdominal: [soft], [ nontender to palpation], [no guarding], [no appreciable organomegaly] Ext: [no gross muscle atrophy], [1+ pitting edema left lower extremity], [left knee limited range of motion due to pain, no erythema] Psych: [Alert], [oriented], [appropriate affect] - Labs CBC & Chem 7: 09/14/18 09:36 Labs: Abnormal Lab Results - Last 24 Hours (Table) 09/15/18 09/15/18 09/16/18 Range/Units 17:11 21:47 07:11 POC Glucose (mg/dL) 357 H 205 H 183 H (75-99) mg/dL 09/16/18 Range/Units 11:16 POC Glucose (mg/dL) 182 H (75-99) mg/dL Assessment and Plan Assessment: Assessment and Plan 1. L knee severe OA: s/p L total knee arthroplasty POD 3. Knee x-ray after the procedure show no complicating process. Pain management with [place] 5 1 tab PRN for pain 1-5, [place] 7.5 PRN for pain 6-10 and Dilaudid 0.5 mg IV Q3 PRN for breakthrough. Start Meloxicam 7.5 mg PO QD. Neurochecks. Elevated LLE. Weight bearing as per Ortho recommendations. Plans for home rehab as per patient. FU PT and OT consult, Orthopedic Sx 2. Diabetes Mellitus: POC glucose 182. Continue NPH 25 units BID. Change sliding scale from low to medium for better glycemic control. Added 5 units of insulin with meals yesterday. Diabetic diet. Accuchecks. Hypoglycemic precautions. 3. Hypertension: BP 153/88. Continue Metoprolol 25 mg PO BID, Losartan 50 mg PO QD, Imdur 60 mg PO QD. Monitor vitals, adjust medications as necessary. 4. Atrial fibrillation: Rate controlled with Metoprolol 25 mg PO BID. AC with Xarelto 20 mg PO QHS as per Ortho. Telemetry monitoring. Keep K > 4 and Mg > 2. 5. CAD: s/p 5 stents. Start ASA 325 mg PO QD as per Ortho. Restart Lipitor 80 mg PO QHS. Continue beta milan and ARB. 6. CKD 3: Follows Nephrology outPT. Restart Calcitriol 0.25 mg PO QSu. Avoid nephrotoxins. 7. DVT/GI Prophylaxis: Lovenox 30 mg SUBCUT BID. Patient worked with PT yesterday. Plan is to go home with home rehab. Pain well-controlled. Hospital bed delivered to patient's home today. Discharge today as per Ortho.
[2018-09-19] MEDS ORDERED: CALCITRIOL 0.25 MCG CAP PO SCH (12:00)
== END 2018-09-16 13:49 | disposition home health service (06) | DRG 470 ==
LOC: 2ORMAIN 09:19 → 4SSUR 16:03 → UNDODISIN 09-15 13:52
PROVIDERS: ADMIT Orthopaedic Surgery; ATTEND Orthopaedic Surgery
PROC: 0SRD0J9 Replacement of Left Knee Joint with Synthetic Substitute, Cemented, Open Approach (ICD-10-PCS; principal; 2018-09-13 13:05)
DX: M17.0 Bilateral primary osteoarthritis of knee (principal); E11.22 Type 2 diabetes mellitus with diabetic chronic kidney disease; E78.5 Hyperlipidemia, unspecified; G40.909 Epilepsy, unspecified, not intractable, without status epilepticus; H54.62 Unqualified visual loss, left eye, normal vision right eye; I12.9 Hypertensive chronic kidney disease with stage 1 through stage 4 chronic kidney disease, or unspecified chronic kidney disease; I25.10 Atherosclerotic heart disease of native coronary artery without angina pectoris; I48.91 Unspecified atrial fibrillation; N18.3 Chronic kidney disease, stage 3 (moderate); Z79.01 Long term (current) use of anticoagulants; Z79.4 Long term (current) use of insulin; Z79.82 Long term (current) use of aspirin; Z79.899 Other long term (current) drug therapy; Z95.5 Presence of coronary angioplasty implant and graft; Z98.49 Cataract extraction status, unspecified eye; Z88.1 Allergy status to other antibiotic agents
CPT/HCPCS: 85025; 88300

== ENCOUNTER 2019-04-18 08:26 | Day surgery (SDC) | payer MEDICARE ==
[2019-04-14 11:11] VITALS: BMI 38.7
--- NOTE | 2019-04-17 13:46 | HP ---
HISTORY AND PHYSICAL DATE OF SURGERY: 04/18/2019 Steve Parra is a 68-year-old patient seen with left knee adhesions after previously undergoing total knee arthroplasty. After treatment options were discussed with him, he elected to proceed with manipulation under anesthesia, left knee with steroid injection. Consent was obtained. PAST MEDICAL HISTORY: Hypertension, [id number] diabetes, cardiovascular disease. PAST SURGICAL HISTORY: Cardiac catheterization with stent insertion, left total knee arthroplasty, trigger finger release. DAILY MEDICATIONS: Atorvastatin, Humalog insulin, Xarelto, aspirin. ALLERGIES: AUGMENTIN. SOCIAL HISTORY: Denies tobacco use. PHYSICAL EXAMINATION: Evaluation of the left knee. He has a well-healed anterior incision. His range of motion 0-80 degrees. Ligaments are stable. He has weakness with quadriceps strength. His distal neurovascular exam is intact. RADIOGRAPHS: Radiographs of the left knee reveal stable appearing total knee arthroplasty. IMPRESSION: 1. Left knee stiffness/adhesions. 2. History of left total knee arthroplasty. 3. Insulin-dependent diabetes. 4. Cardiovascular disease. 5. Hypertension. PLAN: Manipulation under anesthesia, left knee with steroid injection. MMODL / IJN: [id number] /
[~2019-04-18 08:26] MED LIST changes: -ACETAMINOPHEN TAB 500 MG TAB PO ONE; -DEXAMETHASONE SOD PHOSPHATE 10 MG/ML 1 ML VIAL IV ONE; -MELOXICAM 7.5 MG TAB PO ONE; -MIDAZOLAM (PF) 2 MG/2 ML VIAL IV PRN; -SCOPOLAMINE 1.5MG/72HR PATCH TRANSDERM ONE; -TRANEXAMIC ACID 1,000 MG in SODIUM CHLORIDE 0.9% 50 ML IVPB ONE; -VANCOMYCIN 1,750 MG in SODIUM CHLORIDE 0.9% 500 ML 500 ML IVPB ONE; +ceFAZolin 3 GM in SODIUM CHLORIDE 0.9% 100 ML IVPB ONE; -ceFAZolin IN SWFI 2 GM/20 ML SYRINGE IVP ONE
[2019-04-18] MEDS ORDERED: LACTATED RINGERS 1,000 ML IV ONE (08:58)
[2019-04-18 09:03] LABS: Glucose,Whole Blood 240 mg/dL (75-99)
[2019-04-18] MEDS ORDERED: LIDOCAINE 1% 20 ML VIAL (10MG/ML) FOR IV START INTRADERMA ONE (09:05)
[2019-04-18] MEDS ORDERED: INSULIN ASPART (NovoLOG) 100 UNIT/ML VIAL SQ ONE (09:09)
[2019-04-18] MEDS ORDERED: PROPOFOL 10 MG/ML 20 ML VIAL IV ONE (09:57)
[2019-04-18] MEDS ORDERED: fentaNYL (PF) 50 MCG/ML 2 ML AMP ONE (09:57)
[2019-04-18] MEDS ORDERED: KETOROLAC 30 MG/ML 1 ML VIAL ONE (09:57)
[2019-04-18] MEDS ORDERED: MIDAZOLAM 2 MG/2 ML VIAL ONE (09:57)
[2019-04-18] MEDS ORDERED: methylPREDNISolone ACETATE 80 MG/ML 1 ML VIAL INTRAARTIC ONE (10:05)
[2019-04-18] MEDS ORDERED: BUPIVACAINE (PF) 0.25% 30 ML VIAL INTRAARTIC ONE (10:05)
--- NOTE | 2019-04-18 10:12 | P.OP ---
Date of Procedure: 04/18/19 Preoperative Diagnosis: Left knee adhesions Postoperative Diagnosis: Left knee adhesions Procedure(s) Performed: Manipulation under anesthesia left knee with steroid injection Anesthesia: MAC, local Surgeon: Paco Martinez Estimated Blood Loss (ml): 0 Pathology: none sent Condition: stable Disposition: PACU Indications for Procedure: 68-year-old patient seen with persistent left knee adhesions status post total knee arthroplasty. After treatment options were discussed she elected to proceed with manipulation under anesthesia with steroid injection left knee. Operative Findings: See description of procedure Description of Procedure: The patient was taken to monitored anesthesia area. Patient received preoperative IV antibiotics. The patient underwent IV sedation by the department of anesthesia. Once sufficient anesthesia was noted a manipulation was performed of left knee achieving full extension and 120 of flexion. The superior lateral aspect was now prepped and draped in the normal sterile orthopedic fashion. A solution of 1 mL Depo-Medrol and 3 mL quarter percent Marcaine were injected intra-articular under sterile technique. The knee was again taken through range of motion. A sterile Band-Aid was applied. The patient was awakened having entire the procedure well.
[2019-04-18 10:22] VITALS: TEMP 98
[2019-04-18 10:53] VITALS: RESP 16
[2019-04-18 10:57] LABS: Glucose,Whole Blood 174 mg/dL (75-99)
[2019-04-18 11:54] VITALS: BP 130/67; PULSE 50
== END 2019-04-18 12:19 | disposition home or self-care (01) ==
LOC: OR 08:26
PROVIDERS: ATTEND Orthopaedic Surgery
DX: T84.89XA Other specified complication of internal orthopedic prosthetic devices, implants and grafts, initial encounter (principal); M25.662 Stiffness of left knee, not elsewhere classified; Z96.652 Presence of left artificial knee joint; I10 Essential (primary) hypertension; E11.9 Type 2 diabetes mellitus without complications; I25.10 Atherosclerotic heart disease of native coronary artery without angina pectoris; Z95.5 Presence of coronary angioplasty implant and graft; E78.5 Hyperlipidemia, unspecified; I48.91 Unspecified atrial fibrillation; Z79.4 Long term (current) use of insulin; Z79.01 Long term (current) use of anticoagulants; Z79.82 Long term (current) use of aspirin; Z79.899 Other long term (current) drug therapy; Z88.1 Allergy status to other antibiotic agents; Z88.0 Allergy status to penicillin
CPT/HCPCS: 27570; J2250; J1040; J2405; J3010; J1885; J2704

== ENCOUNTER 2021-12-05 14:18 | Inpatient (IN) | payer MEDICARE ==
--- NOTE | 2021-12-05 15:19 | ED ---
General Adult HPI - General Chief complaint: Recheck/Abnormal Lab/Rx Stated complaint: Leg swelling Time Seen by Provider: 12/05/21 14:32 Source: patient, RN notes reviewed, old records reviewed Mode of arrival: ambulatory Limitations: no limitations - History of Present Illness Initial comments: 71-year-old male history of chronic kidney disease presenting with increased lower external swelling and mild dyspnea. Patient states she's had decreased ur ine output over the past several days. He is currently on torsemide. He is followed by nephrology for chronic kidney disease. He states he had a prolonged admission at outside hospital with anemia and suspected GI bleed. At that time he was taken off of his anticoagulate. He denies chest pain. He's had some mild dyspnea. No rectal bleeding or melena. No fevers. - Related Data Home Medications Medication Instructions Recorded Confirmed Atorvastatin Calcium [Lipitor] 80 mg PO HS 10/22/15 12/05/21 Brimonidine Tartrate/Timolol 1 drop RIGHT EYE BID 10/22/15 12/05/21 [Combigan 0.2%/0.5% Ophth Soln] Brinzolamide [Azopt 1% Ophth Susp] 1 drop RIGHT EYE BID 10/22/15 12/05/21 INSULIN ASPART (NovoLOG) [NovoLOG] See Protocol SQ AC-TID 10/22/15 12/05/21 Isosorbide Mononitrate ER [Imdur] 60 mg PO DAILY 10/22/15 12/05/21 Multivitamins, Thera [Theragran] 1 tab PO DAILY 10/22/15 12/05/21 Magnesium Oxide [Mag-Ox] 800 mg PO TID 09/09/18 12/05/21 Acetaminophen [Tylenol 8 Hour] 650 mg PO Q8H PRN 12/05/21 12/05/21 Aspirin EC [Ecotrin] 325 mg PO DAILY 12/05/21 12/05/21 Citalopram Hydrobromide [CeleXA] 10 mg PO DAILY 12/05/21 12/05/21 Ferrous Sulfate [Feosol] 325 mg PO Q48H 12/05/21 12/05/21 Insulin NPH Human Isophane 25 units SQ BID 12/05/21 12/05/21 [humuLIN N] Pantoprazole Sodium [Protonix] 40 mg PO DAILY 12/05/21 12/05/21 Potassium Chloride [Klor-Con M20] 20 meq PO BID 12/05/21 12/05/21 Torsemide [Demadex] 20 mg PO DAILY 12/05/21 12/05/21 Vit C/E/Zn/Coppr/Lutein/Zeaxan 2 cap PO DAILY 12/05/21 12/05/21 [Preservision Areds 2 Softgel] allopurinoL [Zyloprim] 100 mg PO HS 12/05/21 12/05/21 carvediloL [Coreg] 6.25 mg PO BID 12/05/21 12/05/21 Allergies Allergy/AdvReac Type Severity Reaction Status Date / Time ampicillin Allergy "sleepy" Verified 12/05/21 14:29 clarithromycin [From Biaxin] Allergy "sleepy" Verified 12/05/21 14:29 Review of Systems ROS Statement: Those systems with pertinent positive or pertinent negative responses have been documented in the HPI. ROS Other: All systems not noted in ROS Statement are negative. Past Medical History Past Medical History: Coronary Artery Disease (CAD), Diabetes Mellitus, Hyperlipidemia, Seizure Disorder Additional Past Medical History / Comment(s): arthritis, INSULIN DEPENDENT -DI ABETIC , RENAL DISEASE STAGE 3 History of Any Multi-Drug Resistant Organisms: None Reported Past Surgical History: Heart Catheterization With Stent, Orthopedic Surgery, Tonsillectomy Additional Past Surgical History / Comment(s): trigger finger release, jhonny cataracts, left eye surgery, total 5 stents, LEFT SHOULDER SURGERY, TOTAL LEFT KNEE Past Anesthesia/Blood Transfusion Reactions: Previous Problems w/ Anesthesia, Postoperative Nausea & Vomiting (PONV) Additional Past Anesthesia/Blood Transfusion Reaction / Comment(s): "hard time waking up" Date of Last Stent Placement:: 2003 Past Psychological History: No Psychological Hx Reported Smoking Status: Never smoker Past Alcohol Use History: Rare Past Drug Use History: None Reported - Past Family History Mother Family Medical History: No Reported History General Exam Limitations: no limitations General appearance: alert, in no apparent distress Head exam: Present: atraumatic, normocephalic Eye exam: Present: normal appearance, PERRL ENT exam: Present: normal exam Neck exam: Present: normal inspection. Absent: tenderness, meningismus Respiratory exam: Present: rales. Absent: respiratory distress Cardiovascular Exam: Present: regular rate, normal rhythm GI/Abdominal exam: Present: soft, distended Extremities exam: Present: pedal edema Neurological exam: Present: alert, oriented X3, CN II-XII intact. Absent: motor sensory deficit Psychiatric exam: Present: normal affect, normal mood Skin exam: Present: warm, dry Course Vital Signs 12/05/21 14:24 Temperature 97.2 F L Pulse Rate 57 L Respiratory 18 Rate Blood Pressure 168/82 O2 Sat by Pulse 99 Oximetry EKG Findings - EKG Comments: EKG Findings:: EKG: Atrial fibrillation with slow ventricular response, low voltage, rate of 55, QRS duration 101, QTC 419 Medical Decision Making - Medical Decision Making 71-year-old presenting for evaluation of fluid retention, history of chronic kidney disease and dyspnea. Patient has had increased dyspnea. No central chest pain. He is in atrial fibrillation with slow ventricular response. He has significant lower extremity edema and bilateral rales on auscultation. Workup reveals a anemia which is stable according to the patient. He has chronic kidney disease with creatinine of 2.06. His blood sugar was low and is treated just with oral glucose and prefers to normal. He does have a significantly elevated BNP at 3500. His given IV Lasix. He will be admitted for fluid overload. Echo has been ordered. Case discussed with Dr. Mosley. - Lab Data Result diagrams: 12/05/21 15:36 12/05/21 15:36 Lab Results 12/05/21 12/05/21 12/05/21 Range/Units 15:36 15:36 15:36 WBC 6.8 (3.8-10.6) k/uL RBC 2.83 L (4.30-5.90) m/uL Hgb 8.9 L (13.0-17.5) gm/dL Hct 28.3 L (39.0-53.0) % MCV 99.7 (80.0-100.0) fL MCH 31.4 (25.0-35.0) pg MCHC 31.5 (31.0-37.0) g/dL RDW 18.3 H (11.5-15.5) % Plt Count 248 (150-450) k/uL MPV 7.8 Neutrophils % 76 % Lymphocytes % 11 % Monocytes % 8 % Eosinophils % 0 % Basophils % 0 % Neutrophils # 5.1 (1.3-7.7) k/uL Lymphocytes # 0.8 L (1.0-4.8) k/uL Monocytes # 0.5 (0-1.0) k/uL Eosinophils # 0.0 (0-0.7) k/uL Basophils # 0.0 (0-0.2) k/uL Hypochromasia Moderate Anisocytosis Slight Macrocytosis Moderate PT 11.1 (9.0-12.0) sec INR 1.0 (<1.2) APTT 25.7 (22.0-30.0) sec Sodium 138 (137-145) mmol/L Potassium 4.7 (3.5-5.1) mmol/L Chloride 107 (98-107) mmol/L Carbon Dioxide 21 L (22-30) mmol/L Anion Gap 10 mmol/L BUN 42 H (9-20) mg/dL Creatinine 2.06 H (0.66-1.25) mg/dL Est GFR (CKD-EPI)AfAm 37 (>60 ml/min/1.73 sqM) Est GFR (CKD-EPI)NonAf 32 (>60 ml/min/1.73 sqM) Glucose 42 L* (74-99) mg/dL POC Glucose (mg/dL) (75-99) mg/dL POC Glu [employer] ID Calcium 8.8 (8.4-10.2) mg/dL Magnesium 1.8 (1.6-2.3) mg/dL Total Bilirubin 0.8 (0.2-1.3) mg/dL AST 37 (17-59) U/L ALT 29 (4-49) U/L Alkaline Phosphatase 112 (38-126) U/L NT-Pro-B Natriuret Pep pg/mL Total Protein 6.5 (6.3-8.2) g/dL Albumin 3.5 (3.5-5.0) g/dL 12/05/21 12/05/21 Range/Units 15:36 17:02 WBC (3.8-10.6) k/uL RBC (4.30-5.90) m/uL Hgb (13.0-17.5) gm/dL Hct (39.0-53.0) % MCV (80.0-100.0) fL MCH (25.0-35.0) pg MCHC (31.0-37.0) g/dL RDW (11.5-15.5) % Plt Count (150-450) k/uL MPV Neutrophils % % Lymphocytes % % Monocytes % % Eosinophils % % Basophils % % Neutrophils # (1.3-7.7) k/uL Lymphocytes # (1.0-4.8) k/uL Monocytes # (0-1.0) k/uL Eosinophils # (0-0.7) k/uL Basophils # (0-0.2) k/uL Hypochromasia Anisocytosis Macrocytosis PT (9.0-12.0) sec INR (<1.2) APTT (22.0-30.0) sec Sodium (137-145) mmol/L Potassium (3.5-5.1) mmol/L Chloride (98-107) mmol/L Carbon Dioxide (22-30) mmol/L Anion Gap mmol/L BUN (9-20) mg/dL Creatinine (0.66-1.25) mg/dL Est GFR (CKD-EPI)AfAm (>60 ml/min/1.73 sqM) Est GFR (CKD-EPI)NonAf (>60 ml/min/1.73 sqM) Glucose (74-99) mg/dL POC Glucose (mg/dL) 86 (75-99) mg/dL POC Glu [employer] ID Willian Sanchezley Calcium (8.4-10.2) mg/dL Magnesium (1.6-2.3) mg/dL Total Bilirubin (0.2-1.3) mg/dL AST (17-59) U/L ALT (4-49) U/L Alkaline Phosphatase (38-126) U/L NT-Pro-B Natriuret Pep 3590 pg/mL Total Protein (6.3-8.2) g/dL Albumin (3.5-5.0) g/dL Disposition Clinical Impression: CKD (chronic kidney disease), CHF (congestive heart failure), Fluid overload Disposition: ADMITTED IP TO THIS [facility] Condition: Stable Is patient prescribed a controlled substance at d/c from ED?: No Referrals: Elia Sanchez MD [Primary Care Provider] - 1-2 days Decision to Admit Reason: Admit from EC Decision Date: 12/05/21 Decision Time: 18:13
[2021-12-05 15:54] LABS: Anisocytosis Slight; Basophils % (A) 0 %; Eosinophils % (A) 0 %; HCT 28.3 % (39.0-53.0); HGB 8.9 gm/dL (13.0-17.5); Hypochromasia Moderate; Lymphocytes # (A) 0.8 k/uL (1.0-4.8); Lymphocytes % (A) 11 %; MCH 31.4 pg (25.0-35.0); MCHC 31.5 g/dL (31.0-37.0); MCV 99.7 fL (80.0-100.0); Macrocytosis Moderate; Mean Platelet Volume 7.8; Monocytes # (A) 0.5 k/uL (0-1.0); Monocytes % (A) 8 %; Neutrophils # (A) 5.1 k/uL (1.3-7.7); Neutrophils % (A) 76 %; Platelet Count 248 k/uL (150-450); RBC 2.83 m/uL (4.30-5.90); RDW 18.3 % (11.5-15.5); WBC 6.8 k/uL (3.8-10.6)
[2021-12-05 15:59] LABS: Albumin 3.5 g/dL (3.5-5.0); Calcium 8.8 mg/dL (8.4-10.2); Magnesium 1.8 mg/dL (1.6-2.3); Potassium 4.7 mmol/L (3.5-5.1); Total Bilirubin 0.8 mg/dL (0.2-1.3); Total Protein 6.5 g/dL (6.3-8.2)
[2021-12-05 16:15] LABS: Partial Thromboplastin Time 25.7 sec (22.0-30.0); Prothrombin Time 11.1 sec (9.0-12.0)
[2021-12-05 17:04] LABS: Glucose,Whole Blood 86 mg/dL (75-99)
[2021-12-05] MEDS ORDERED: FUROSEMIDE 10 MG/ML 4 ML VIAL IV STA (17:05)
--- NOTE | 2021-12-05 17:58 | XR ---
EXAMINATION TYPE: XR chest 2V DATE OF EXAM: 12/05/2021 5:09 PM COMPARISON:None TECHNIQUE: XR chest 2V Frontal and lateral views of the chest. CLINICAL INDICATION:Male, 71 years old with history of difficulty breathing; FINDINGS: Lungs/Pleura: There is no evidence of pleural effusion, focal consolidation, or pneumothorax. Pulmonary vascularity: Pulmonary vascular congestion. Heart/mediastinum: Cardiomediastinal silhouette is unremarkable. Musculoskeletal: No acute osseous pathology. IMPRESSION: Cardiomegaly and mild pulmonary vascular congestion. Correlate with BNP for congestive heart failure.
[2021-12-05] MEDS ORDERED: NALOXONE 0.4 MG/ML 1 ML VIAL IV PRN (18:09)
[2021-12-05] MEDS ORDERED: ACETAMINOPHEN TAB 325 MG TAB PO PRN (18:09)
[2021-12-05 20:31] LABS: Glucose,Whole Blood 203 mg/dL (75-99)
[2021-12-05] MEDS ORDERED: INSULIN NPH 300 UNIT/3 ML VIAL SQ SCH (21:00)
[2021-12-05] MEDS: DORZOLAMIDE HCL 2% DROPS 10 ML BTL RIGHT EYE SCH (22:08)
[2021-12-05] MEDS: BRIMONIDINE TARTRATE 0.2% DROPS 5 ML BTL RIGHT EYE SCH (22:08)
[2021-12-05] MEDS: INSULIN ASPART (NovoLOG) 100 UNIT/ML VIAL SQ SCH (22:09)
[2021-12-05] MEDS: POTASSIUM CHLORIDE ER 20 MEQ TAB.ER PO SCH (22:09)
[2021-12-05] MEDS: carvediloL 6.25 MG TAB PO SCH (22:09)
[2021-12-05] MEDS: MAGNESIUM OXIDE 400 MG TAB PO SCH (22:09)
[2021-12-05] MEDS: ATORVASTATIN 80 MG TAB PO SCH (22:09)
[2021-12-05] MEDS: allopurinoL 100 MG TAB PO SCH (22:09)
[2021-12-06] MEDS: FUROSEMIDE 10 MG/ML 4 ML VIAL IV SCH ×2 (05:56→17:06)
[2021-12-06 06:42] LABS: Glucose,Whole Blood 207 mg/dL (75-99)
[2021-12-06] MEDS: POTASSIUM CHLORIDE ER 20 MEQ TAB.ER PO SCH (07:40)
[2021-12-06] MEDS: ASPIRIN 325 MG TAB PO SCH (07:40)
[2021-12-06] MEDS: ISOSORBIDE MONONITRATE ER 60 MG TAB.ER.24H PO SCH (07:40)
[2021-12-06] MEDS: MAGNESIUM OXIDE 400 MG TAB PO SCH ×3 (07:40→21:16)
[2021-12-06] MEDS: PANTOPRAZOLE 40 MG TABLET PO SCH (07:40)
[2021-12-06] MEDS: carvediloL 6.25 MG TAB PO SCH ×2 (07:40→21:16)
[2021-12-06] MEDS: MULTIVITAMINS, THERA 1 EACH TAB PO SCH (07:40)
[2021-12-06] MEDS: INSULIN ASPART (NovoLOG) 100 UNIT/ML VIAL SQ SCH ×4 (07:41→21:19)
[2021-12-06] MEDS: VIT A,C & E-LUTEIN-MINERALS 1 EACH TAB PO SCH (07:42)
[2021-12-06] MEDS: CITALOPRAM HYDROBROMIDE 10 MG TAB PO SCH (07:42)
[2021-12-06] MEDS: BRIMONIDINE TARTRATE 0.2% DROPS 5 ML BTL RIGHT EYE SCH ×2 (07:46→21:18)
[2021-12-06] MEDS: DORZOLAMIDE HCL 2% DROPS 10 ML BTL RIGHT EYE SCH ×2 (07:47→21:17)
[2021-12-06] MEDS: TIMOLOL 0.5% OPHTH DROPS 5 ML BTL RIGHT EYE SCH ×2 (07:47→21:17)
[2021-12-06] MEDS ORDERED: INSULIN NPH 300 UNIT/3 ML VIAL SQ SCH ×2 (09:00→12:45)
[2021-12-06 09:18] LABS: African American GFR (CKD) 37.8 (60.0-200.0); BUN/Creat Ratio 19.4 Ratio (12.00-20.00); Blood Urea Nitrogen 38.8 mg/dL (9.0-27.0); Calcium 8.9 mg/dL (8.7-10.3); Magnesium 1.8 mg/dL (1.5-2.4); Non-African American GFR(CKD) 32.6 (60.0-200.0); Potassium 4.9 mmol/L (3.5-5.5)
--- NOTE | 2021-12-06 10:00 | ECHOF ---
Referral Reason:chf MEASUREMENTS -------- HEIGHT: 177.8 cm WEIGHT: 127.9 kg BP: 101/61 RVIDd: 3.0 cm (< 3.3) IVSd: 1.8 cm (0.6 - 1.1) LVIDd: 4.2 cm (3.9 - 5.3) LVPWd: 1.5 cm (0.6 - 1.1) IVSs: 2.6 cm LVIDs: 2.7 cm LVPWs: 1.7 cm LAESV Index (A-L): 44.08 ml/m Ao Diam: 3.0 cm (2.0 - 3.7) AV Cusp: 1.9 cm (1.5 - 2.6) LA Diam: 6.1 cm (2.7 - 3.8) MV EXCURSION: 19.171 mm (> 18.000) MV EF SLOPE: 47 mm/s (70 - 150) EPSS: 0.3 cm AV maxP.82 mmHg AV meanP.71 mmHg RAP: 5.00 mmHg RVSP: 39.46 mmHg FINDINGS -------- This was a technically difficult study with suboptimal apical views. The left ventricular size is normal. There is severe concentric left ventricular hypertrophy. Ove rall left ventricular systolic function is normal with, an EF between 55 - 60 %. The right ventricle is normal in size. LA is severely dilated >40 ml/m2 The right atrial size is normal. 5.0mg of Lumason was utilized for enhancement of images Interatrial and interventricular septum intact. There is mild aortic valve sclerosis. There is no evidence of aortic regurgitation. [id number] mitral regurgitation is present. Mild tricuspid regurgitation present. There is mild pulmonary hypertension. The right ventricular systolic pressure, as measured by Doppler, is 39.46mmHg. There is no pulmonic regurgitation present. The aortic root size is normal. IVC Not well visulized. There is no pericardial effusion. CONCLUSIONS -------- 1. The left ventricular size is normal. 2. There is severe concentric left ventricular hypertrophy. 3. Overall left ventricular systolic function is normal with, an EF between 55 - 60 %. 4. LA is severely dilated >40 ml/m2 5. There is mild aortic valve sclerosis. 6. [id number] mitral regurgitation is present. 7. Mild tricuspid regurgitation present. 8. There is mild pulmonary hypertension. 9. The right ventricular systolic pressure, as measured by Doppler, is 39.46mmHg. [employer]OWER[employer] SUPERVISOR: Yesenia Araiza RDCS
--- NOTE | 2021-12-06 10:06 | P.NPCON ---
History of Present Illness - Reason for Consult acute renal failure, chronic renal failure - History of Present Illness Reason for consultation: Acute kidney injury on chronic kidney disease History of present illness: Patient is a 71-year-old male seen in renal consultation for acute kidney injury on chronic kidney disease. Patient has chronic kidney disease stage IIIB with baseline creatinine 1.7-1.8 secondary to diabetic kidney disease. Patient states he was at wound care yesterday and worsening and became short of breath. He was advised to go to the hospital. Patient's currently on room air. He does admit to worsening of lower extremity edema over the last 1 week or so. Patient states he's been taking torsemide 20 mg daily. Currently he is on IV Lasix 40 mg twice daily. Good urine output. No hematuria. Denies use of nonsteroidals. No vomiting. No diarrhea. Patient has long-standing history of diabetes. Denies chest pain. Blood pressure stable. Vital signs are stable. General: The patient appeared well nourished and normally developed. HEENT: Head exam is unremarkable. LUNGS: Breath sounds decreased. HEART: Rate and Rhythm are regular. ABDOMEN: Soft, no distention. EXTREMITITES: 2+ edema. Past Medical History Past Medical History: Coronary Artery Disease (CAD), Diabetes Mellitus, Hyperlipidemia, Seizure Disorder Additional Past Medical History / Comment(s): arthritis, INSULIN DEPENDENT - DIABETIC , RENAL DISEASE STAGE 3 History of Any Multi-Drug Resistant Organisms: None Reported Past Surgical History: Heart Catheterization With Stent, Orthopedic Surgery, Tonsillectomy Additional Past Surgical History / Comment(s): trigger finger release, jhonny cataracts, left eye surgery, total 5 stents, LEFT SHOULDER SURGERY, TOTAL LEFT KNEE Past Anesthesia/Blood Transfusion Reactions: Previous Problems w/ Anesthesia, Postoperative Nausea & Vomiting (PONV) Additional Past Anesthesia/Blood Transfusion Reaction / Comment(s): "hard time waking up" Date of Last Stent Placement:: 2003 Past Psychological History: No Psychological Hx Reported Smoking Status: Never smoker Past Alcohol Use History: Rare Past Drug Use History: None Reported - Past Family History Mother Family Medical History: No Reported History Medications and Allergies Home Medications Medication Instructions Recorded Confirmed Type Atorvastatin Calcium [Lipitor] 80 mg PO HS 10/22/15 12/05/21 History Brimonidine Tartrate/Timolol 1 drop RIGHT EYE BID 10/22/15 12/05/21 History [Combigan 0.2%/0.5% Ophth Soln] Brinzolamide [Azopt 1% Ophth Susp] 1 drop RIGHT EYE BID 10/22/15 12/05/21 History INSULIN ASPART (NovoLOG) [NovoLOG] See Protocol SQ AC-TID 10/22/15 12/05/21 Hi story Isosorbide Mononitrate ER [Imdur] 60 mg PO DAILY 10/22/15 12/05/21 History Multivitamins, Thera [Theragran] 1 tab PO DAILY 10/22/15 12/05/21 History Magnesium Oxide [Mag-Ox] 800 mg PO TID 09/09/18 12/05/21 History Acetaminophen [Tylenol 8 Hour] 650 mg PO Q8H PRN 12/05/21 12/05/21 History Aspirin EC [Ecotrin] 325 mg PO DAILY 12/05/21 12/05/21 History Citalopram Hydrobromide [CeleXA] 10 mg PO DAILY 12/05/21 12/05/21 History Ferrous Sulfate [Feosol] 325 mg PO Q48H 12/05/21 12/05/21 History Insulin NPH Human Isophane 25 units SQ BID 12/05/21 12/05/21 History [humuLIN N] Pantoprazole Sodium [Protonix] 40 mg PO DAILY 12/05/21 12/05/21 History Potassium Chloride [Klor-Con M20] 20 meq PO BID 12/05/21 12/05/21 History Torsemide [Demadex] 20 mg PO DAILY 12/05/21 12/05/21 History Vit C/E/Zn/Coppr/Lutein/Zeaxan 2 cap PO DAILY 12/05/21 12/05/21 History [Preservision Areds 2 Softgel] allopurinoL [Zyloprim] 100 mg PO HS 12/05/21 12/05/21 History carvediloL [Coreg] 6.25 mg PO BID 12/05/21 12/05/21 History Allergies Allergy/AdvReac Type Severity Reaction Status Date / Time ampicillin Allergy "sleepy" Verified 12/05/21 14:29 clarithromycin [From Biaxin] Allergy "sleepy" Verified 12/05/21 14:29 Physical Exam Vitals: Vital Signs Temp Pulse Pulse Resp BP BP Pulse Ox 12/06/21 07:38 98.3 F 62 17 151/66 96 12/06/21 01:23 98.6 F 78 16 101/61 96 12/05/21 20:54 98.1 F 82 18 159/71 95 12/05/21 18:00 79 20 146/70 95 12/05/21 14:24 97.2 F L 57 L 18 168/82 99 Intake and Output 12/05/21 12/06/21 12/06/21 22:59 06:59 14:59 Output Total 350 900 Balance -350 -900 Output: Urine 350 900 Other: Weight 128.094 kg Results - Lab Results Most recent lab results Calcium 8.9 mg/dL (8.7-10.3) 12/06/21 03:54 Magnesium 1.8 mg/dL (1.5-2.4) 12/06/21 03:54 12/05/21 15:36 12/06/21 03:54 Assessment and Plan Plan: Assessment: 1. Acute kidney injury mostly prerenal secondary to cardiorenal syndrome. Renal function stable. Creatinine 2.0. 2. Chronic kidney disease stage IIIB secondary to diabetic kidney disease. Baseline creatinine 1.7-1.8. 3. Fluid overload. 4. CHF. Unknown ejection fraction. 5. Diabetes mellitus. 6. Anemia of chronic kidney disease. Plan: Maintain IV Lasix. Low-salt diet and 1500 mL fluid restriction. Check UA. Check renal ultrasound. Follow-up echocardiogram. Continue to monitor renal function and urine output. Check iron studies. Thank you for the consultation. I will continue to follow the patient with you during his hospital stay.
[2021-12-06 11:22] LABS: Glucose,Whole Blood 219 mg/dL (75-99)
[2021-12-06] MEDS ORDERED: INSULIN ASPART (NovoLOG) 100 UNIT/ML VIAL SQ SCH (12:30)
--- NOTE | 2021-12-06 12:32 | US ---
EXAMINATION TYPE: US kidneys/renal and bladder DATE OF EXAM: 12/06/2021 COMPARISON: NONE CLINICAL HISTORY: emelina. EMELINA, CHD, Edema EXAM MEASUREMENTS: Right Kidney: 10.4 x 4.6 x 4.7 cm Left Kidney: 9.9 x 5.3 x 5.0 cm Right Kidney: No hydronephrosis or masses seen Left Kidney: No hydronephrosis or masses seen, lower pole not well seen in sagittal view. Bladder: No intraluminal abnormalities evident Bilateral Jets seen: not at this time There is no evidence for hydronephrosis at this point in time. No nephrolithiasis is seen. Cortical medullary differentiation is maintained bilaterally. No masses are identified. The urinary bladder i s anechoic. Limited exam do to patient body habitus and edema IMPRESSION: Exam is somewhat limited technically. Sizes as described, no evident hydronephrosis.
[2021-12-06 16:10] LABS: Glucose,Whole Blood 241 mg/dL (75-99)
[2021-12-06 16:42] LABS: % Iron Saturation 18.72 (15.00-50.00)
--- NOTE | 2021-12-06 19:10 | P.HPIM ---
History of Present Illness H&P Date: 12/06/21 Chief Complaint: Increasing edema This is a very pleasant 71-year-old patient of Dr. Elia Sanchez. 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 Patient is accompanied by his in the room He has had chronic edema but has been noticing increasing swelling of the lower extremity. Yesterday became increasingly short of breath. No fever no chills. No cough. Found to be in CHF. Patient also has chronic lower extremity venous insufficiency and blisters for which she was a split wound care center. Patient to receive IV Lasix to which she is feeling better. Appetite is fair. 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 Alcohol rarely. . Family history: Reviewed, noncontributory to presentation Physical examination: VITAL SIGNS: 97.2, 57, 18, 168/82, 99% room air GENERAL: BMI 40.5, sitting up in a recliner, tired awake. EYES: Pupils equal. Conjunctiva normal. HEENT: External appearance of nose and ears normal, oral cavity grossly normal. NECK: JVD raised; masses not palpable. HEART: First and second heart sounds are normal; edema present. LUNGS: Respiratory rate increased; decreased breath sounds. ABDOMEN: Soft, nontender, liver spleen not palpable, no masses palpable. PSYCH: Alert and oriented x3; mood and affect normal. MUSCULOSKELETAL:No Clubbing/cyanosis;muscles-grossly intact. Evidence of OA NEUROLOGICAL: Cranial nerves grossly intact; no facial asymmetry, power and sensation grossly intact. LYMPHATICS: No lymph nodes palpable in the axilla and neck INVESTIGATIONS, reviewed in the clinical context: Sodium 137 potassium 4.9 BUN 38.8 creatinine 248 TIBC 255 ferritin 472 2-D echocardiogram: Severe concentric LVH, EF 55-60% Admission labs: White count 6.8 hemoglobin 8.9 potassium 4.7 BUN 42 creatinine 2.06 ProBNP 3590 EKG tracing personally reviewed by me-atrial fibrillation rate 55 Chest x-ray film personally reviewed by me-cardiomegaly, pulmonary edema Assessment and plan: -Acute on chronic congestive heart failure exacerbation from diastolic dysfunction EF 55-60% IV Lasix 60 mg every 12 -CAD with a prior history of stent last one being about 5 years ago. Patient does follow with cardiology Dr. Santos Aspirin, Coreg 6.25 twice a day -Hyperuricemia Allopurinol 100 mg daily at bedtime -Hyperlipidemia Lipitor 80 mg daily at bedtime -GERD Protonix 40 mg daily -Diabetes mellitus type 2 chronically on insulin Follow Accu-Cheks Depression Celexa 10 mg a day IV Lasix 60 mg every 12. Follow Accu-Cheks. Home medications resumed. Follow with nephrology: Cardiology. Care was discussed with the patient. Questions answered. Follow BNP Given the complexity and severity of patient's condition expect the patient to be in the hospital at least for 2 overnights Past Medical History Past Medical History: Coronary Artery Disease (CAD), Diabetes Mellitus, Hyperlipidemia, Seizure Disorder Additional Past Medical History / Comment(s): arthritis, INSULIN DEPENDENT - DIABETIC , RENAL DISEASE STAGE 3 History of Any Multi-Drug Resistant Organisms: None Reported Past Surgical History: Heart Catheterization With Stent, Orthopedic Surgery, Tonsillectomy Additional Past Surgical History / Comment(s): trigger finger release, jhonny cataracts, left eye surgery, total 5 stents, LEFT SHOULDER SURGERY, TOTAL LEFT KNEE Past Anesthesia/Blood Transfusion Reactions: Previous Problems w/ Anesthesia, Postoperative Nausea & Vomiting (PONV) Additional Past Anesthesia/Blood Transfusion Reaction / Comment(s): "hard time waking up" Date of Last Stent Placement:: 2003 Past Psychological History: No Psychological Hx Reported Smoking Status: Never smoker Past Alcohol Use History: Rare Past Drug Use History: None Reported - Past Family History Mother Family Medical History: No Reported History Medications and Allergies Home Medications Medication Instructions Recorded Confirmed Type Atorvastatin Calcium [Lipitor] 80 mg PO HS 10/22/15 12/05/21 History Brimonidine Tartrate/Timolol 1 drop RIGHT EYE BID 10/22/15 12/05/21 History [Combigan 0.2%/0.5% Ophth Soln] Brinzolamide [Azopt 1% Ophth Susp] 1 drop RIGHT EYE BID 10/22/15 12/05/21 History INSULIN ASPART (NovoLOG) [NovoLOG] See Protocol SQ AC-TID 10/22/15 12/05/21 History Isosorbide Mononitrate ER [Imdur] 60 mg PO DAILY 10/22/15 12/05/21 History Multivitamins, Thera [Theragran] 1 tab PO DAILY 10/22/15 12/05/21 History Magnesium Oxide [Mag-Ox] 800 mg PO TID 09/09/18 12/05/21 History Acetaminophen [Tylenol 8 Hour] 650 mg PO Q8H PRN 12/05/21 12/05/21 History Aspirin EC [Ecotrin] 325 mg PO DAILY 12/05/21 12/05/21 History Citalopram Hydrobromide [CeleXA] 10 mg PO DAILY 12/05/21 12/05/21 History Ferrous Sulfate [Feosol] 325 mg PO Q48H 12/05/21 12/05/21 History Insulin NPH Human Isophane 25 units SQ BID 12/05/21 12/05/21 History [humuLIN N] Pantoprazole Sodium [Protonix] 40 mg PO DAILY 12/05/21 12/05/21 History Potassium Chloride [Klor-Con M20] 20 meq PO BID 12/05/21 12/05/21 History Torsemide [Demadex] 20 mg PO DAILY 12/05/21 12/05/21 History Vit C/E/Zn/Coppr/Lutein/Zeaxan 2 cap PO DAILY 12/05/21 12/05/21 History [Preservision Areds 2 Softgel] allopurinoL [Zyloprim] 100 mg PO HS 12/05/21 12/05/21 History carvediloL [Coreg] 6.25 mg PO BID 12/05/21 12/05/21 History Allergies Allergy/AdvReac Type Severity Reaction Status Date / Time ampicillin Allergy "sleepy" Verified 12/05/21 14:29 clarithromycin [From Biaxin] Allergy "sleepy" Verified 12/05/21 14:29 Physical Exam Vitals: Vital Signs Temp Pulse Pulse Resp BP BP Pulse Ox 12/06/21 07:38 98.3 F 62 17 151/66 96 12/06/21 01:23 98.6 F 78 16 101/61 96 12/05/21 20:54 98.1 F 82 18 159/71 95 12/05/21 18:00 79 20 146/70 95 12/05/21 14:24 97.2 F L 57 L 18 168/82 99 Intake and Output 12/05/21 12/06/21 12/06/21 22:59 06:59 14:59 Output Total 350 900 Balance -350 -900 Output: Urine 350 900 Other: Weight 128.094 kg Results CBC & Chem 7: 12/05/21 15:36 12/06/21 03:54 Labs: Abnormal Lab Results - Last 24 Hours (Table) 12/05/21 12/05/21 12/05/21 Range/Units 15:36 15:36 20:30 RBC 2.83 L (4.30-5.90) m/uL Hgb 8.9 L (13.0-17.5) gm/dL Hct 28.3 L (39.0-53.0) % RDW 18.3 H (11.5-15.5) % Lymphocytes # 0.8 L (1.0-4.8) k/uL Carbon Dioxide 21 L (22-30) mmol/L BUN 42 H (9-20) mg/dL Creatinine 2.06 H (0.66-1.25) mg/dL Est GFR (CKD-EPI)AfAm (60.0-200.0) Est GFR (CKD-EPI)NonAf (60.0-200.0) Glucose 42 L* (74-99) mg/dL POC Glucose (mg/dL) 203 H (75-99) mg/dL Hemoglobin A1c (0.0-6.0) % 12/06/21 12/06/21 12/06/21 Range/Units 03:54 03:54 06:40 RBC (4.30-5.90) m/uL Hgb (13.0-17.5) gm/dL Hct (39.0-53.0) % RDW (11.5-15.5) % Lymphocytes # (1.0-4.8) k/uL Carbon Dioxide (22-30) mmol/L BUN 38.8 H (9-20) mg/dL Creatinine 2.0 H (0.66-1.25) mg/dL Est GFR (CKD-EPI)AfAm 37.8 L (60.0-200.0) Est GFR (CKD-EPI)NonAf 32.6 L (60.0-200.0) Glucose 194 H (74-99) mg/dL POC Glucose (mg/dL) 207 H (75-99) mg/dL Hemoglobin A1c 6.3 H (0.0-6.0) % Thrombosis Risk Factor Assmnt - Choose All That Apply Each Factor Represents 1 point: Obesity (BMI >25), Swollen legs (current) Each Risk Factor Represents 2 Points: Age 61-74 years Thrombosis Risk Factor Assessment Total Risk Factor Score: 4 Thrombosis Risk Factor Assessment Level: Moderate Risk
[2021-12-06 20:53] LABS: Glucose,Whole Blood 137 mg/dL (75-99)
[2021-12-06] MEDS ORDERED: INSULIN DETEMIR (LEVEMIR) 100 UNIT/ML SYR SQ SCH (21:00)
[2021-12-06] MEDS: allopurinoL 100 MG TAB PO SCH (21:16)
[2021-12-06] MEDS: ATORVASTATIN 80 MG TAB PO SCH (21:16)
[2021-12-06] MEDS: INSULIN NPH 300 UNIT/3 ML VIAL SQ SCH (21:17)
[2021-12-06 22:29] LABS: Appearance,Urine Clear (Clear); Bilirubin,Urine Negative (Negative); Blood,Urine Negative (Negative); Color,Urine Yellow (Yellow); Ketones,Urine Negative (Negative); Leukocyte Esterase,Urine Negative (Negative); Nitrite,Urine Negative (Negative); PH, Urine 5.5 (5.0-8.0); Protein,Urine Trace (Negative); Urobilinogen,Urine 0.2 (0.2,1.0)
[2021-12-07] MEDS: FUROSEMIDE 10 MG/ML 10 ML VIAL IV SCH ×2 (05:11→17:44)
[2021-12-07 06:01] LABS: Glucose,Whole Blood 44 mg/dL (75-99)
[2021-12-07 06:22] LABS: Glucose,Whole Blood 55 mg/dL (75-99)
[2021-12-07] MEDS: INSULIN ASPART (NovoLOG) 100 UNIT/ML VIAL SQ SCH ×4 (06:49→21:55)
[2021-12-07 06:52] LABS: Glucose,Whole Blood 85 mg/dL (75-99)
[2021-12-07] MEDS: INSULIN NPH 300 UNIT/3 ML VIAL SQ SCH (08:51)
[2021-12-07] MEDS: VIT A,C & E-LUTEIN-MINERALS 1 EACH TAB PO SCH (08:51)
[2021-12-07] MEDS: PANTOPRAZOLE 40 MG TABLET PO SCH (08:51)
[2021-12-07] MEDS: FERROUS SULFATE 325 MG TAB PO SCH (08:51)
[2021-12-07] MEDS: carvediloL 6.25 MG TAB PO SCH ×2 (08:52→22:06)
[2021-12-07] MEDS: MAGNESIUM OXIDE 400 MG TAB PO SCH ×3 (08:52→22:06)
[2021-12-07] MEDS: ISOSORBIDE MONONITRATE ER 60 MG TAB.ER.24H PO SCH (08:52)
[2021-12-07] MEDS: MULTIVITAMINS, THERA 1 EACH TAB PO SCH (08:52)
[2021-12-07] MEDS: ASPIRIN 325 MG TAB PO SCH (08:52)
[2021-12-07] MEDS: CITALOPRAM HYDROBROMIDE 10 MG TAB PO SCH (08:52)
[2021-12-07] MEDS: BRIMONIDINE TARTRATE 0.2% DROPS 5 ML BTL RIGHT EYE SCH ×2 (08:54→22:07)
[2021-12-07] MEDS: TIMOLOL 0.5% OPHTH DROPS 5 ML BTL RIGHT EYE SCH ×2 (08:54→22:06)
[2021-12-07] MEDS: DORZOLAMIDE HCL 2% DROPS 10 ML BTL RIGHT EYE SCH ×2 (08:54→22:06)
--- NOTE | 2021-12-07 09:31 | P.PN ---
Subjective Patient is seen in follow-up for acute kidney injury on chronic kidney disease. Patient has chronic kidney disease stage IIIB with baseline creatinine near 1.8 secondary to diabetic kidney disease. On IV Lasix. Edema improving. Nonoliguric. Denies chest pain or shortness of breath. On room air. Vital signs are stable. General: The patient appeared well nourished and normally developed. HEENT: Head exam is unremarkable. LUNGS: Breath sounds decreased. HEART: Rate and Rhythm are regular. ABDOMEN: Soft, no distention. EXTREMITITES: Lower extremities wrapped. 1+ edema. Objective - Vital Signs Vital signs: Vital Signs Temp 98.4 F 12/07/21 08:00 Pulse 71 12/07/21 08:00 Resp 16 12/07/21 08:00 BP 159/67 12/07/21 08:00 Pulse Ox 96 12/07/21 08:00 Intake & Output 12/06/21 12/07/21 12/07/21 18:59 06:59 18:59 Intake Total 450 Output Total 2250 1000 600 Balance -2250 -550 -600 Weight 121.5 kg Intake: Oral 450 Output: Urine 2250 1000 600 Other: # Voids 3 # Bowel Movements 1 0 - Labs CBC & Chem 7: 12/05/21 15:36 12/06/21 03:54 Labs: Abnormal Lab Results - Last 24 Hours (Table) 12/06/21 12/06/21 12/06/21 Range/Units 03:54 03:54 11:05 POC Glucose (mg/dL) (75-99) mg/dL Hemoglobin A1c 6.3 H (0.0-6.0) % Iron 48 L (65-175) ug/dL Transferrin 182.0 L (204.0-354.0) mg/dL Ferritin 472.0 H (22.0-322.0) ng/mL Urine Protein Trace A (Negative) 12/06/21 12/06/21 12/06/21 Range/Units 11:20 16:09 20:50 POC Glucose (mg/dL) 219 H 241 H 137 H (75-99) mg/dL Hemoglobin A1c (0.0-6.0) % Iron (65-175) ug/dL Transferrin (204.0-354.0) mg/dL Ferritin (22.0-322.0) ng/mL Urine Protein (Negative) 12/07/21 12/07/21 Range/Units 05:59 06:20 POC Glucose (mg/dL) 44 L 55 L (75-99) mg/dL Hemoglobin A1c (0.0-6.0) % Iron (65-175) ug/dL Transferrin (204.0-354.0) mg/dL Ferritin (22.0-322.0) ng/mL Urine Protein (Negative) Assessment and Plan Plan: Assessment: 1. Acute kidney injury mostly prerenal secondary to cardiorenal syndrome. Renal function stable. Creatinine 2.0 yesterday. UA fairly benign. No hydronephrosis noted on kidney ultrasound. 2. Chronic kidney disease stage IIIB secondary to diabetic kidney disease. Baseline creatinine 1.7-1.8. 3. Fluid overload. Improving with diuresis. 4. Acute on chronic diastolic CHF with mild to moderate mitral regurgitation. 5. Diabetes mellitus. 6. Anemia of chronic kidney disease. Iron deficiency noted. Plan: Maintain IV Lasix. Low-salt diet and 1500 mL fluid restriction. Continue to monitor renal function and urine output. Add IV iron. Follow-up morning
[2021-12-07] MEDS: SODIUM FERRIC GLUCONAT-SUCROSE 125 MG in SODIUM CHLORIDE 0.9% 100 ML IVPB SCH (09:47)
[2021-12-07 11:29] LABS: Glucose,Whole Blood 193 mg/dL (75-99)
[2021-12-07 11:50] LABS: Magnesium 1.8 mg/dL (1.5-2.4)
[2021-12-07 12:00] LABS: African American GFR (CKD) 37.8 (60.0-200.0); Anion Gap 12.7 mmol/L (10.00-18.00); BUN/Creat Ratio 17.55 Ratio (12.00-20.00); Blood Urea Nitrogen 35.1 mg/dL (9.0-27.0); Calcium 9.1 mg/dL (8.7-10.3); Carbon Dioxide 24.3 mmol/L (20.0-27.5); Non-African American GFR(CKD) 32.6 (60.0-200.0)
[2021-12-07] MEDS: hydroCHLOROthiazide 25 MG TAB PO SCH ×2 (13:18→22:08)
[2021-12-07] MEDS: INSULN ASP PRT/INSULIN ASPART 100 UNIT/ML 10 ML VIAL SQ SCH ×2 (13:18→16:55)
--- NOTE | 2021-12-07 14:32 | P.PN ---
Progress Note - Text Progress Note Date: 12/07/21 Chief Complaint: Increasing edema This is a very pleasant 71-year-old patient of Dr. Elia Sanchez. 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 Patient is accompanied by his in the room He has had chronic edema but has been noticing increasing swelling of the lower extremity. Yesterday became increasingly short of breath. No fever no chills. No cough. Found to be in CHF. Patient also has chronic lower extremity venous insufficiency and blisters for which she was a split wound care center. Patient to receive IV Lasix to which she is feeling better. Appetite is fair. Admitted with CHF exacerbation. IV Lasix. December 07: Making urine. Breathing better. Some decrease edema. Continue IV Lasix. Discussed with patient. Active Medications Acetaminophen (Acetaminophen Tab 325 Mg Tab) 650 mg PO Q6HR PRN PRN Reason: Mild Pain or Fever > 100.5 Allopurinol (Allopurinol 100 Mg Tab) 100 mg PO [facility] Last Admin: 12/06/21 21:16 Dose: 100 mg Documented by: Aspirin (Aspirin 325 Mg Tab) 325 mg PO DAILY [facility] Last Admin: 12/07/21 08:52 Dose: 325 mg Documented by: Atorvastatin Calcium (Atorvastatin 80 Mg Tab) 80 mg PO [facility] Last Admin: 12/06/21 21:16 Dose: 80 mg Documented by: Brimonidine Tartrate (Brimonidine Tartrate 0.2% Drops 5 Ml Btl) 1 drops RIGHT EYE BID [facility] Last Admin: 12/07/21 08:54 Dose: 1 drops Documented by: Carvedilol (Carvedilol 6.25 Mg Tab) 6.25 mg PO BID [facility] Last Admin: 12/07/21 08:52 Dose: 6.25 mg Documented by: Citalopram Hydrobromide (Citalopram Hydrobromide 10 Mg Tab) 10 mg PO DAILY [facility] Last Admin: 12/07/21 08:52 Dose: 10 mg Documented by: Dorzolamide HCl (Dorzolamide Hcl 2% Drops 10 Ml Btl) 1 drops RIGHT EYE BID [facility] Last Admin: 12/07/21 08:54 Dose: 1 drops Documented by: Ferrous Sulfate (Ferrous Sulfate 325 Mg Tab) 325 mg PO Q48H [facility] Last Admin: 12/07/21 08:51 Dose: 325 mg Documented by: Furosemide (Furosemide 10 Mg/Ml 10 Ml Vial) 60 mg IV Q12H [facility] Last Admin: 12/07/21 05:11 Dose: 60 mg Documented by: Hydrochlorothiazide (Hydrochlorothiazide 25 Mg Tab) 25 mg PO BID [facility] Last Admin: 12/07/21 13:18 Dose: 25 mg Documented by: Ferric Sodium Gluconate 125 mg (/ Sodium Chloride) 110 mls @ 100 mls/hr IVPB DAILY [facility] Stop: 12/10/21 09:31 Last Admin: 12/07/21 09:47 Dose: 100 mls/hr Documented by: Insulin Aspart (Insulin Aspart (Novolog) 100 Unit/Ml Vial) 0 unit SQ ACHS [facility]; Protocol Last Admin: 12/07/21 12:13 Dose: 3 unit Documented by: Insulin Aspart (Insuln Asp Prt/Insulin Aspart 100 Unit/Ml 10 Ml Vial) 20 unit SQ AC-BID [facility] Insulin Aspart (Insuln Asp Prt/Insulin Aspart 100 Unit/Ml 10 Ml Vial) 7 unit SQ AC-LUNCH [facility] Last Admin: 12/07/21 13:18 Dose: 7 unit Documented by: Isosorbide Mononitrate (Isosorbide Mononitrate Er 60 Mg Tab.Er.24h) 60 mg PO DAILY [facility] Last Admin: 12/07/21 08:52 Dose: 60 mg Documented by: Magnesium Oxide (Magnesium Oxide 400 Mg Tab) 800 mg PO TID [facility] Last Admin: 12/07/21 08:52 Dose: 800 mg Documented by: Multivitamins (Multivitamins, Thera 1 Each Tab) 1 each PO DAILY [facility] Last Admin: 12/07/21 08:52 Dose: 1 each Documented by: Multivitamins/Minerals (Vit A,C & H-Slgnza-Spqpknua 1 Each Tab) 2 each PO DAILY [facility] Last Admin: 12/07/21 08:51 Dose: 2 each Documented by: Naloxone HCl (Naloxone 0.4 Mg/Ml 1 Ml Vial) 0.2 mg IV Q2M PRN PRN Reason: Opioid Reversal Pantoprazole Sodium (Pantoprazole 40 Mg Tablet) 40 mg PO DAILY [facility] Last Admin: 12/07/21 08:51 Dose: 40 mg Documented by: Timolol Maleate (Timolol 0.5% Ophth Drops 5 Ml Btl) 1 drops RIGHT EYE BID [facility] Last Admin: 12/07/21 08:54 Dose: 1 drops Documented by: Past medical history to include: CAD with stent, diabetes, hyperlipidemia, seizure disorder, arthritis, CK D s tage III, 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 Alcohol rarely. . Family history: Reviewed, noncontributory to presentation Physical examination: VITAL SIGNS: 98.4, 71, 16, 159/67, 96% room air GENERAL: Up in a recliner, awake. EYES: Pupils equal. Conjunctiva normal. HEENT: External appearance of nose and ears normal, oral cavity grossly normal. NECK: JVD raised; masses not palpable. HEART: First and second heart sounds are normal; edema present. LUNGS: Respiratory rate increased; decreased breath sounds. ABDOMEN: Soft, nontender, liver spleen not palpable, no masses palpable. PSYCH: Alert and oriented x3; mood and affect normal. MUSCULOSKELETAL:No Clubbing/cyanosis;muscles-grossly intact. Evidence of OA LOWER extremity: Dressing up to the knee INVESTIGATIONS, reviewed in the clinical context: December 07: Potassium 4 BUN 35 creatinine 2 Sodium 137 potassium 4.9 BUN 38.8 creatinine 248 TIBC 255 ferritin 472 2-D echocardiogram: Severe concentric LVH, EF 55-60% Admission labs: White count 6.8 hemoglobin 8.9 potassium 4.7 BUN 42 creatinine 2.06 ProBNP 3590 EKG tracing personally reviewed by me-atrial fibrillation rate 55 Chest x-ray film personally reviewed by me-cardiomegaly, pulmonary edema Assessment and plan: -Acute on chronic congestive heart failure exacerbation from diastolic dysfunction EF 55-60%: Slow to respond IV Lasix 60 mg every 12 -CAD with a prior history of stent last one being about 5 years ago. Patient does follow with cardiology Dr. Santos Aspirin, Coreg 6.25 twice a day -Hyperuricemia Allopurinol 100 mg daily at bedtime -Hyperlipidemia Lipitor 80 mg daily at bedtime -GERD Protonix 40 mg daily -Diabetes mellitus type 2 chronically on insulin Discussed with patient. Treadmill use Novolin 70/30. 20 units before meals twice a day and 7 units with lunch Depression Celexa 10 mg a day Continue IV Lasix 60 mg every 12. Start Novolin 70/30 20 units with breakfast and supper and 7 units with lunch. This was discussed and seen with the patient. Follow Accu-Cheks. Follow labs.
[2021-12-07 16:34] LABS: Glucose,Whole Blood 174 mg/dL (75-99)
[2021-12-07] MEDS ORDERED: INSULIN NPH 300 UNIT/3 ML VIAL SQ SCH (21:00)
[2021-12-07 21:48] LABS: Glucose,Whole Blood 121 mg/dL (75-99)
[2021-12-07] MEDS: allopurinoL 100 MG TAB PO SCH (22:06)
[2021-12-07] MEDS: ATORVASTATIN 80 MG TAB PO SCH (22:06)
[2021-12-08] MEDS: FUROSEMIDE 10 MG/ML 10 ML VIAL IV SCH ×2 (07:07→17:06)
[2021-12-08 07:12] LABS: Glucose,Whole Blood 110 mg/dL (75-99)
--- NOTE | 2021-12-08 07:42 | XR ---
EXAMINATION TYPE: XR chest 2V DATE OF EXAM: 12/08/2021 COMPARISON: 12/05/2021 HISTORY: Shortness of breath TECHNIQUE: Frontal and lateral views of the chest are obtained. FINDINGS: Scattered senescent parenchymal changes noted. Hyperinflation compatible with COPD. Pulmonary venous congestion and cardiomegaly without overt failure. Mediastinal structures are stable and grossly unremarkable. No evidence for hilar prominence. Degenerative changes dorsal spine. IMPRESSION: 1. Pulmonary venous congestion and cardiomegaly without overt failure.
[2021-12-08] MEDS: INSULIN ASPART (NovoLOG) 100 UNIT/ML VIAL SQ SCH ×4 (08:13→20:55)
[2021-12-08] MEDS: ISOSORBIDE MONONITRATE ER 60 MG TAB.ER.24H PO SCH (08:22)
[2021-12-08] MEDS: INSULN ASP PRT/INSULIN ASPART 100 UNIT/ML 10 ML VIAL SQ SCH ×3 (08:22→16:54)
[2021-12-08] MEDS: MULTIVITAMINS, THERA 1 EACH TAB PO SCH (08:22)
[2021-12-08] MEDS: CITALOPRAM HYDROBROMIDE 10 MG TAB PO SCH (08:22)
[2021-12-08] MEDS: VIT A,C & E-LUTEIN-MINERALS 1 EACH TAB PO SCH (08:22)
[2021-12-08] MEDS: hydroCHLOROthiazide 25 MG TAB PO SCH ×2 (08:23→20:56)
[2021-12-08] MEDS: ASPIRIN 325 MG TAB PO SCH (08:23)
[2021-12-08] MEDS: carvediloL 6.25 MG TAB PO SCH ×2 (08:23→20:55)
[2021-12-08] MEDS: PANTOPRAZOLE 40 MG TABLET PO SCH (08:23)
[2021-12-08] MEDS: MAGNESIUM OXIDE 400 MG TAB PO SCH ×3 (08:23→20:55)
[2021-12-08] MEDS: TIMOLOL 0.5% OPHTH DROPS 5 ML BTL RIGHT EYE SCH ×2 (08:23→20:56)
[2021-12-08] MEDS: BRIMONIDINE TARTRATE 0.2% DROPS 5 ML BTL RIGHT EYE SCH ×2 (08:23→20:56)
[2021-12-08] MEDS: DORZOLAMIDE HCL 2% DROPS 10 ML BTL RIGHT EYE SCH ×2 (08:23→20:56)
[2021-12-08 08:54] LABS: African American GFR (CKD) 36.7 (60.0-200.0); BUN/Creat Ratio 16.63 Ratio (12.00-20.00); Blood Urea Nitrogen 34.1 mg/dL (9.0-27.0); Calcium 9.3 mg/dL (8.7-10.3); Carbon Dioxide 25.6 mmol/L (20.0-27.5); Magnesium 1.9 mg/dL (1.5-2.4); Non-African American GFR(CKD) 31.7 (60.0-200.0); Potassium 3.8 mmol/L (3.5-5.5)
[2021-12-08] MEDS: SODIUM FERRIC GLUCONAT-SUCROSE 125 MG in SODIUM CHLORIDE 0.9% 100 ML IVPB SCH (09:29)
--- NOTE | 2021-12-08 09:29 | P.PN ---
Subjective Patient is seen in follow-up for acute kidney injury on chronic kidney disease. Patient has chronic kidney disease stage IIIB with baseline creatinine near 1.8 secondary to diabetic kidney disease. On IV Lasix. Edema improving. Nonoliguric. Denies chest pain or shortness of breath. On room air. No active complaints. No changes overnight. Vital signs are stable. General: The patient appeared well nourished and normally developed. HEENT: Head exam is unremarkable. LUNGS: Breath sounds decreased. HEART: Rate and Rhythm are regular. ABDOMEN: Soft, no distention. EXTREMITITES: Lower extremities wrapped. 1+ edema. Objective - Vital Signs Vital signs: Vital Signs Temp 98.6 F 12/08/21 08:00 Pulse 81 12/08/21 08:00 Resp 16 12/08/21 08:00 BP 165/66 12/08/21 08:00 Pulse Ox 94 L 12/08/21 08:00 Intake & Output 12/07/21 12/08/21 12/08/21 18:59 06:59 18:59 Intake Total 1080 Output Total 1600 1275 375 Balance -520 -1275 -375 Weight 119.2 kg Intake: Oral 1080 Output: Urine 1600 1275 375 Other: Voiding Method Urinal Urinal # Voids 300 - Labs CBC & Chem 7: 12/05/21 15:36 12/08/21 06:08 Labs: Abnormal Lab Results - Last 24 Hours (Table) 12/07/21 12/07/21 12/07/21 Range/Units 06:50 11:28 16:33 BUN 35.1 H (9.0-27.0) mg/dL Creatinine 2.0 H (0.6-1.5) mg/dL Est GFR (CKD-EPI)AfAm 37.8 L (60.0-200.0) Est GFR (CKD-EPI)NonAf 32.6 L (60.0-200.0) POC Glucose (mg/dL) 193 H 174 H (75-99) mg/dL 12/07/21 12/08/21 12/08/21 Range/Units 21:42 06:08 07:10 BUN 34.1 H (9.0-27.0) mg/dL Creatinine 2.1 H (0.6-1.5) mg/dL Est GFR (CKD-EPI)AfAm 36.7 L (60.0-200.0) Est GFR (CKD-EPI)NonAf 31.7 L (60.0-200.0) POC Glucose (mg/dL) 121 H 110 H (75-99) mg/dL Assessment and Plan Plan: Assessment: 1. Acute kidney injury mostly prerenal secondary to cardiorenal syndrome. Renal function stable. Creatinine 2.1 today. UA fairly benign. No hydronephrosis noted on kidney ultrasound. 2. Chronic kidney disease stage IIIB secondary to diabetic kidney disease. Baseline creatinine 1.7-1.8. 3. Fluid overload. Improving with diuresis. 4. Acute on chronic diastolic CHF with mild to moderate mitral regurgitation. 5. Diabetes mellitus. 6. Anemia of chronic kidney disease. Iron deficiency noted. Plan: Maintain IV Lasix - transitioned to oral diuretics tomorrow. Low-salt diet and 1500 mL fluid restriction. Continue to monitor renal function and urine output. Maintain IV line.
[2021-12-08 11:26] LABS: Glucose,Whole Blood 122 mg/dL (75-99)
--- NOTE | 2021-12-08 15:51 | P.PN ---
Progress Note - Text Progress Note Date: 12/08/21 Chief Complaint: Increasing edema This is a very pleasant 71-year-old patient of Dr. Elia Sanchez. 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 Patient is accompanied by his in the room He has had chronic edema but has been noticing increasing swelling of the lower extremity. Yesterday became increasingly short of breath. No fever no chills. No cough. Found to be in CHF. Patient also has chronic lower extremity venous insufficiency and blisters for which she was a split wound care center. Patient to receive IV Lasix to which she is feeling better. Appetite is fair. Admitted with CHF exacerbation. IV Lasix. December 07: Making urine. Breathing better. Some decrease edema. Continue IV Lasix. Discussed with patient. December 08: Good urine output. IV Lasix. Some improvement in shortness of breath. Discussed with patient. Accu-Cheks better after insulin changed to Novolin 70/30. Active Medications Acetaminophen (Acetaminophen Tab 325 Mg Tab) 650 mg PO Q6HR PRN PRN Reason: Mild Pain or Fever > 100.5 Allopurinol (Allopurinol 100 Mg Tab) 100 mg PO [facility] Last Admin: 12/07/21 22:06 Dose: 100 mg Documented by: Aspirin (Aspirin 325 Mg Tab) 325 mg PO DAILY [facility] Last Admin: 12/08/21 08:23 Dose: 325 mg Documented by: Atorvastatin Calcium (Atorvastatin 80 Mg Tab) 80 mg PO [facility] Last Admin: 12/07/21 22:06 Dose: 80 mg Documented by: Brimonidine Tartrate (Brimonidine Tartrate 0.2% Drops 5 Ml Btl) 1 drops RIGHT EYE BID [facility] Last Admin: 12/08/21 08:23 Dose: 1 drops Documented by: Carvedilol (Carvedilol 6.25 Mg Tab) 6.25 mg PO BID [facility] Last Admin: 12/08/21 08:23 Dose: 6.25 mg Documented by: Citalopram Hydrobromide (Citalopram Hydrobromide 10 Mg Tab) 10 mg PO DAILY [facility] Last Admin: 12/08/21 08:22 Dose: 10 mg Documented by: Dorzolamide HCl (Dorzolamide Hcl 2% Drops 10 Ml Btl) 1 drops RIGHT EYE BID [facility] Last Admin: 12/08/21 08:23 Dose: 1 drops Documented by: Ferrous Sulfate (Ferrous Sulfate 325 Mg Tab) 325 mg PO Q48H [facility] Last Admin: 12/07/21 08:51 Dose: 325 mg Documented by: Furosemide (Furosemide 10 Mg/Ml 10 Ml Vial) 60 mg IV Q12H [facility] Last Admin: 12/08/21 07:07 Dose: 60 mg Documented by: Hydrochlorothiazide (Hydrochlorothiazide 25 Mg Tab) 25 mg PO BID [facility] Last Admin: 12/08/21 08:23 Dose: 25 mg Documented by: Ferric Sodium Gluconate 125 mg (/ Sodium Chloride) 110 mls @ 100 mls/hr IVPB DAILY [facility] Stop: 12/10/21 09:31 Last Admin: 12/08/21 09:29 Dose: 100 mls/hr Documented by: Insulin Aspart (Insulin Aspart (Novolog) 100 Unit/Ml Vial) 0 unit SQ ACHS [facility]; Protocol Last Admin: 12/08/21 11:33 Dose: Not Given Documented by: Insulin Aspart (Insuln Asp Prt/Insulin Aspart 100 Unit/Ml 10 Ml Vial) 20 unit SQ AC-BID [facility] Last Admin: 12/08/21 08:22 Dose: 20 unit Documented by: Insulin Aspart (Insuln Asp Prt/Insulin Aspart 100 Unit/Ml 10 Ml Vial) 7 unit SQ AC-LUNCH [facility] Last Admin: 12/08/21 11:35 Dose: 7 unit Documented by: Isosorbide Mononitrate (Isosorbide Mononitrate Er 60 Mg Tab.Er.24h) 60 mg PO DAILY [facility] Last Admin: 12/08/21 08:22 Dose: 60 mg Documented by: Magnesium Oxide (Magnesium Oxide 400 Mg Tab) 800 mg PO TID [facility] Last Admin: 12/08/21 08:23 Dose: 800 mg Documented by: Multivitamins (Multivitamins, Thera 1 Each Tab) 1 each PO DAILY [facility] Last Admin: 12/08/21 08:22 Dose: 1 each Documented by: Multivitamins/Minerals (Vit A,C & M-Jodune-Mpxuuklt 1 Each Tab) 2 each PO DAILY [facility] Last Admin: 12/08/21 08:22 Dose: 2 each Documented by: Naloxone HCl (Naloxone 0.4 Mg/Ml 1 Ml Vial) 0.2 mg IV Q2M PRN PRN Reason: Opioid Reversal Pantoprazole Sodium (Pantoprazole 40 Mg Tablet) 40 mg PO DAILY [facility] Last Admin: 12/08/21 08:23 Dose: 40 mg Documented by: Timolol Maleate (Timolol 0.5% Ophth Drops 5 Ml Btl) 1 drops RIGHT EYE BID [facility] Last Admin: 12/08/21 08:23 Dose: 1 drops Documented by: Past medical history to include: CAD with stent, diabetes, hyperlipidemia, seizure disorder, arthritis, CK D stage III, 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 Alcohol rarely. . Family history: Reviewed, noncontributory to presentation Physical examination: VITAL SIGNS: 98.6, 81, 16, 165/66, 94% room air GENERAL: Returning in bed, awake. EYES: Pupils equal. Conjunctiva normal. HEENT: External appearance of nose and ears normal, oral cavity grossly normal. NECK: JVD raised; masses not palpable. HEART: First and second heart sounds are normal; edema present. LUNGS: Respiratory rate increased; decreased breath sounds. ABDOMEN: Soft, nontender, liver spleen not palpable, no masses palpable. PSYCH: Alert and oriented x3; mood and affect normal. MUSCULOSKELETAL:No Clubbing/cyanosis;muscles-grossly intact. Evidence of OA LOWER extremity: Dressing up to the knee INVESTIGATIONS, reviewed in the clinical context: December 08: Potassium 3.8 creatinine 2.1 December 07: Potassium 4 BUN 35 creatinine 2 Sodium 137 potassium 4.9 BUN 38.8 creatinine 248 TIBC 255 ferritin 472 2-D echocardiogram: Severe concentric LVH, EF 55-60% Admission labs: White count 6.8 hemoglobin 8.9 potassium 4.7 BUN 42 creatinine 2.06 ProBNP 3590 EKG tracing personally reviewed by me-atrial fibrillation rate 55 Chest x-ray film personally reviewed by me-cardiomegaly, pulmonary edema Assessment and plan: -Acute on chronic congestive heart failure exacerbation from diastolic dysfunction EF 55-60%: Slow to respond IV Lasix 60 mg every 12 -CAD with a prior history of stent last one being about 5 years ago. Patient does follow with cardiology Dr. Tom Eaton, Coreg 6.25 twice a day -Hyperuricemia Allopurinol 100 mg daily at bedtime -Hyperlipidemia Lipitor 80 mg daily at bedtime -GERD Protonix 40 mg daily -Diabetes mellitus type 2 chronically on insulin Novolin 70/30. 20 units before meals twice a day and 7 units with lunch Depression Celexa 10 mg a day Continue IV Lasix 60 mg every 12. Continue Novolin 70/30 20 units with breakfast and supper and 7 units with lunch. Discussed with the patient. Repeat labs.
[2021-12-08 16:30] LABS: Glucose,Whole Blood 127 mg/dL (75-99)
[2021-12-08 20:45] LABS: Glucose,Whole Blood 151 mg/dL (75-99)
[2021-12-08] MEDS: ATORVASTATIN 80 MG TAB PO SCH (20:55)
[2021-12-08] MEDS: allopurinoL 100 MG TAB PO SCH (20:56)
[2021-12-09 00:16] LABS: Glucose,Whole Blood 70 mg/dL (75-99)
[2021-12-09] MEDS: FUROSEMIDE 10 MG/ML 10 ML VIAL IV SCH (05:44)
[2021-12-09 07:18] LABS: Glucose,Whole Blood 121 mg/dL (75-99)
[2021-12-09] MEDS: INSULIN ASPART (NovoLOG) 100 UNIT/ML VIAL SQ SCH ×4 (07:39→20:39)
[2021-12-09] MEDS: INSULN ASP PRT/INSULIN ASPART 100 UNIT/ML 10 ML VIAL SQ SCH ×3 (08:49→18:28)
[2021-12-09] MEDS: PANTOPRAZOLE 40 MG TABLET PO SCH (08:49)
[2021-12-09] MEDS: hydroCHLOROthiazide 25 MG TAB PO SCH ×2 (08:49→20:39)
[2021-12-09] MEDS: MULTIVITAMINS, THERA 1 EACH TAB PO SCH (08:49)
[2021-12-09] MEDS: CITALOPRAM HYDROBROMIDE 10 MG TAB PO SCH (08:49)
[2021-12-09] MEDS: ASPIRIN 325 MG TAB PO SCH (08:49)
[2021-12-09] MEDS: MAGNESIUM OXIDE 400 MG TAB PO SCH ×3 (08:49→20:39)
[2021-12-09] MEDS: carvediloL 6.25 MG TAB PO SCH ×2 (08:49→20:39)
[2021-12-09] MEDS: FERROUS SULFATE 325 MG TAB PO SCH (08:49)
[2021-12-09] MEDS: ISOSORBIDE MONONITRATE ER 60 MG TAB.ER.24H PO SCH (08:49)
[2021-12-09] MEDS: TIMOLOL 0.5% OPHTH DROPS 5 ML BTL RIGHT EYE SCH ×2 (08:50→20:39)
[2021-12-09] MEDS: BRIMONIDINE TARTRATE 0.2% DROPS 5 ML BTL RIGHT EYE SCH ×2 (08:50→20:40)
[2021-12-09] MEDS: VIT A,C & E-LUTEIN-MINERALS 1 EACH TAB PO SCH (08:50)
[2021-12-09] MEDS: DORZOLAMIDE HCL 2% DROPS 10 ML BTL RIGHT EYE SCH ×2 (08:51→20:40)
[2021-12-09 09:10] LABS: African American GFR (CKD) 35.6 (60.0-200.0); Anion Gap 12.2 mmol/L (10.00-18.00); BUN/Creat Ratio 15.71 Ratio (12.00-20.00); Carbon Dioxide 26.8 mmol/L (20.0-27.5); Non-African American GFR(CKD) 30.7 (60.0-200.0); Potassium 3.6 mmol/L (3.5-5.5)
[2021-12-09 12:04] LABS: Glucose,Whole Blood 183 mg/dL (75-99)
--- NOTE | 2021-12-09 13:16 | P.PN ---
Subjective Patient is seen for follow-up for acute kidney injury and top of chronic kidney disease. He has underlying CK D stage IIIB with baseline creatinine about 1.8 mg/dL etiology is diabetic kidney disease. No significant complaints today. No chest pains or shortness of breath. Good urine output. Patient states that he had good results with Lasix as outpatient and does not want to continue with the torsemide as outpatient. Objective - Vital Signs Vital signs: Vital Signs Temp 98.6 F 12/09/21 08:00 Pulse 69 12/09/21 08:00 Resp 16 12/09/21 08:00 BP 150/71 12/09/21 08:00 Pulse Ox 94 L 12/09/21 08:00 Intake & Output 12/08/21 12/09/21 12/09/21 18:59 06:59 18:59 Output Total 2000 600 500 Balance -2000 -600 -500 Weight 119.2 kg 115.808 kg Output: Urine 2000 600 500 Other: Voiding Method Urinal Urinal Urinal # Voids 3 - Exam On examination patient is comfortable awake alert oriented 3. Not in any acute distress. Examination of the heart S1 and S2 Exam shows lungs bilateral breath sounds are heard Abdomen is soft nontender obese Examination lower extremity shows chronic skin changes. Edema 1+ bilaterally JUNIOR PROJECT COORDINATOR exam grossly intact - Labs CBC & Chem 7: 12/05/21 15:36 12/09/21 04:35 Labs: Abnormal Lab Results - Last 24 Hours (Table) 12/08/21 12/08/21 12/09/21 Range/Units 16:28 20:42 00:07 BUN (9.0-27.0) mg/dL Creatinine (0.6-1.5) mg/dL Est GFR (CKD-EPI)AfAm (60.0-200.0) Est GFR (CKD-EPI)NonAf (60.0-200.0) POC Glucose (mg/dL) 127 H 151 H 70 L (75-99) mg/dL 12/09/21 12/09/21 12/09/21 Range/Units 04:35 07:17 12:03 BUN 33.0 H (9.0-27.0) mg/dL Creatinine 2.1 H (0.6-1.5) mg/dL Est GFR (CKD-EPI)AfAm 35.6 L (60.0-200.0) Est GFR (CKD-EPI)NonAf 30.7 L (60.0-200.0) POC Glucose (mg/dL) 121 H 183 H (75-99) mg/dL Assessment and Plan Assessment: 1. Acute kidney injury associated with cardiorenal syndrome. Renal function stable maintained on IV Lasix. 2. CK D stage III be secondary to diabetic kidney disease baseline creatinine 1.7-1.8 mg/dL 3. Fluid overload currently improved 4. Acute on chronic diastolic CHF with [id number]-[id number] mitral regurgitation 5. Type 2 diabetes 6. Anemia of chronic disease with iron deficiency Plan: Can switch to by mouth Lasix today. Follow-up as outpatient in 1-2 weeks. Patient prefers to switch back to oral Lasix instead of torsemide.
[2021-12-09] MEDS: SODIUM FERRIC GLUCONAT-SUCROSE 125 MG in SODIUM CHLORIDE 0.9% 100 ML IVPB SCH (14:00)
[2021-12-09] MEDS: FUROSEMIDE 20 MG TAB PO SCH (15:45)
--- NOTE | 2021-12-09 16:18 | P.PN ---
Progress Note - Text Progress Note Date: 12/09/21 Chief Complaint: Increasing edema This is a very pleasant 71-year-old patient of Dr. Elia Sanchez. 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 Patient is accompanied by his in the room He has had chronic edema but has been noticing increasing swelling of the lower extremity. Yesterday became increasingly short of breath. No fever no chills. No cough. Found to be in CHF. Patient also has chronic lower extremity venous insufficiency and blisters for which she was a split wound care center. Patient to receive IV Lasix to which she is feeling better. Appetite is fair. Admitted with CHF exacerbation. IV Lasix. December 07: Making urine. Breathing better. Some decrease edema. Continue IV Lasix. Discussed with patient. December 08: Good urine output. IV Lasix. Some improvement in shortness of breath. Discussed with patient. Accu-Cheks better after insulin changed to Novolin 70/30. December 09: Patient did drop Accu-Cheks this morning. Dose of Novolin 70/30 adjusted. Oral intake fair. Edema coming down. Lasix been changed over to by mouth. Active Medications Acetaminophen (Acetaminophen Tab 325 Mg Tab) 650 mg PO Q6HR PRN PRN Reason: Mild Pain or Fever > 100.5 Allopurinol (Allopurinol 100 Mg Tab) 100 mg PO [facility] Last Admin: 12/08/21 20:56 Dose: 100 mg Documented by: Aspirin (Aspirin 325 Mg Tab) 325 mg PO DAILY [facility] Last Admin: 12/09/21 08:49 Dose: 325 mg Documented by: Atorvastatin Calcium (Atorvastatin 80 Mg Tab) 80 mg PO [facility] Last Admin: 12/08/21 20:55 Dose: 80 mg Documented by: Brimonidine Tartrate (Brimonidine Tartrate 0.2% Drops 5 Ml Btl) 1 drops RIGHT EYE BID [facility] Last Admin: 12/09/21 08:50 Dose: 1 drops Documented by: Carvedilol (Carvedilol 6.25 Mg Tab) 6.25 mg PO BID [facility] Last Admin: 12/09/21 08:49 Dose: 6.25 mg Documented by: Citalopram Hydrobromide (Citalopram Hydrobromide 10 Mg Tab) 10 mg PO DAILY [facility] Last Admin: 12/09/21 08:49 Dose: 10 mg Documented by: Dorzolamide HCl (Dorzolamide Hcl 2% Drops 10 Ml Btl) 1 drops RIGHT EYE BID [facility] Last Admin: 12/09/21 08:51 Dose: 1 drops Documented by: Ferrous Sulfate (Ferrous Sulfate 325 Mg Tab) 325 mg PO Q48H [facility] Last Admin: 12/09/21 08:49 Dose: 325 mg Documented by: Furosemide (Furosemide 20 Mg Tab) 60 mg PO BID@0900,1600 [facility] Last Admin: 12/09/21 15:45 Dose: 60 mg Documented by: Hydrochlorothiazide (Hydrochlorothiazide 25 Mg Tab) 25 mg PO BID [facility] Last Admin: 12/09/21 08:49 Dose: 25 mg Documented by: Ferric Sodium Gluconate 125 mg (/ Sodium Chloride) 110 mls @ 100 mls/hr IVPB DAILY [facility] Stop: 12/10/21 09:31 Last Admin: 12/09/21 14:00 Dose: 100 mls/hr Documented by: Insulin Aspart (Insulin Aspart (Novolog) 100 Unit/Ml Vial) 0 unit SQ ACHS [facility]; Protocol Last Admin: 12/09/21 12:16 Dose: 3 unit Documented by: Insulin Aspart (Insuln Asp Prt/Insulin Aspart 100 Unit/Ml 10 Ml Vial) 16 unit SQ AC-BID [facility] Insulin Aspart (Insuln Asp Prt/Insulin Aspart 100 Unit/Ml 10 Ml Vial) 6 unit SQ AC-LUNCH [facility] Last Admin: 12/09/21 12:15 Dose: 6 unit Documented by: Isosorbide Mononitrate (Isosorbide Mononitrate Er 60 Mg Tab.Er.24h) 60 mg PO DAILY [facility] Last Admin: 12/09/21 08:49 Dose: 60 mg Documented by: Magnesium Oxide (Magnesium Oxide 400 Mg Tab) 800 mg PO TID [facility] Last Admin: 12/09/21 15:45 Dose: 800 mg Documented by: Multivitamins (Multivitamins, Thera 1 Each Tab) 1 each PO DAILY [facility] Last Admin: 12/09/21 08:49 Dose: 1 each Documented by: Multivitamins/Minerals (Vit A,C & E-Sgwafo-Agvqaxwa 1 Each Tab) 2 each PO DAILY [facility] Last Admin: 12/09/21 08:50 Dose: 2 each Documented by: Naloxone HCl (Naloxone 0.4 Mg/Ml 1 Ml Vial) 0.2 mg IV Q2M PRN PRN Reason: Opioid Reversal Pantoprazole Sodium (Pantoprazole 40 Mg Tablet) 40 mg PO DAILY [facility] Last Admin: 12/09/21 08:49 Dose: 40 mg Documented by: Timolol Maleate (Timolol 0.5% Ophth Drops 5 Ml Btl) 1 drops RIGHT EYE BID [facility] Last Admin: 12/09/21 08:50 Dose: 1 drops Documented by: Past medical history to include: CAD with stent, diabetes, hyperlipidemia, seizure disorder, arthritis, CK D stage III, 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 Alcohol rarely. . Family history: Reviewed, noncontributory to presentation Physical examination: VITAL SIGNS: 98.6, 69, 16, 150/71, 94% room air GENERAL: reclining in bed, sleepy EYES: Pupils equal. Conjunctiva normal. HEENT: External appearance of nose and ears normal, oral cavity grossly normal. NECK: JVD raised; masses not palpable. HEART: First and second heart sounds are normal; edema present. LUNGS: Respiratory rate increased; decreased breath sounds. ABDOMEN: Soft, nontender, liver spleen not palpable, no masses palpable. PSYCH: Sleepy answering questions MUSCULOSKELETAL:No Clubbing/cyanosis;muscles-grossly intact. Evidence of OA LOWER extremity: Dressing up to the knee INVESTIGATIONS, reviewed in the clinical context: December 09: Potassium 3.6 creatinine 2.1 December 08: Potassium 3.8 creatinine 2.1 December 07: Potassium 4 BUN 35 creatinine 2 Sodium 137 potassium 4.9 BUN 38.8 creatinine 248 TIBC 255 ferritin 472 2-D echocardiogram: Severe concentric LVH, EF 55-60% Admission labs: White count 6.8 hemoglobin 8.9 potassium 4.7 BUN 42 creatinine 2.06 ProBNP 3590 EKG tracing personally reviewed by me-atrial fibrillation rate 55 Chest x-ray film personally reviewed by me-cardiomegaly, pulmonary edema Assessment and plan: -Acute on chronic congestive heart failure exacerbation from diastolic dysfunction EF 55-60%: Better Changed to by mouth Lasix 60 mg every 12 -CAD with a prior history of stent last one being about 5 years ago. Patient does follow with cardiology Dr. Santos Aspirin, Coreg 6.25 twice a day -Hyperuricemia Allopurinol 100 mg daily at bedtime -Hyperlipidemia Lipitor 80 mg daily at bedtime -GERD Protonix 40 mg daily -Diabetes mellitus type 2 chronically on insulin, uncontrolled with hypoglycemia Decrease Novolin 70/30. 16 units before meals twice a day and 6 units with lunch Depression Celexa 10 mg a day Change Lasix to by mouth 60 mg every 12.. Adjust dose of insulin as above. Watch for the 24 hours. Discussed with patient.
[2021-12-09 17:04] LABS: Glucose,Whole Blood 190 mg/dL (75-99)
[2021-12-09 19:28] VITALS: RESP 16
[2021-12-09 20:38] LABS: Glucose,Whole Blood 199 mg/dL (75-99)
[2021-12-09] MEDS: ATORVASTATIN 80 MG TAB PO SCH (20:39)
[2021-12-09] MEDS: allopurinoL 100 MG TAB PO SCH (20:39)
[2021-12-10 06:51] LABS: Glucose,Whole Blood 91 mg/dL (75-99)
[2021-12-10] MEDS: INSULIN ASPART (NovoLOG) 100 UNIT/ML VIAL SQ SCH (07:50)
[2021-12-10 08:15] VITALS: BP 158/65; PULSE 76; TEMP 98.2
[2021-12-10] MEDS: FUROSEMIDE 20 MG TAB PO SCH (09:12)
[2021-12-10] MEDS: VIT A,C & E-LUTEIN-MINERALS 1 EACH TAB PO SCH (09:13)
[2021-12-10] MEDS: ASPIRIN 325 MG TAB PO SCH (09:13)
[2021-12-10] MEDS: ISOSORBIDE MONONITRATE ER 60 MG TAB.ER.24H PO SCH (09:13)
[2021-12-10] MEDS: hydroCHLOROthiazide 25 MG TAB PO SCH (09:13)
[2021-12-10] MEDS: PANTOPRAZOLE 40 MG TABLET PO SCH (09:13)
[2021-12-10] MEDS: INSULN ASP PRT/INSULIN ASPART 100 UNIT/ML 10 ML VIAL SQ SCH ×2 (09:13→13:01)
[2021-12-10] MEDS: MAGNESIUM OXIDE 400 MG TAB PO SCH (09:13)
[2021-12-10] MEDS: CITALOPRAM HYDROBROMIDE 10 MG TAB PO SCH (09:13)
[2021-12-10] MEDS: MULTIVITAMINS, THERA 1 EACH TAB PO SCH (09:13)
[2021-12-10] MEDS: carvediloL 6.25 MG TAB PO SCH (09:13)
[2021-12-10] MEDS: BRIMONIDINE TARTRATE 0.2% DROPS 5 ML BTL RIGHT EYE SCH (09:16)
[2021-12-10] MEDS: DORZOLAMIDE HCL 2% DROPS 10 ML BTL RIGHT EYE SCH (09:16)
[2021-12-10] MEDS: TIMOLOL 0.5% OPHTH DROPS 5 ML BTL RIGHT EYE SCH (09:17)
[2021-12-10] MEDS: SODIUM FERRIC GLUCONAT-SUCROSE 125 MG in SODIUM CHLORIDE 0.9% 100 ML IVPB SCH (09:29)
[2021-12-10 12:21] LABS: African American GFR (CKD) 31 (>60 ml/min/1.73 sqM); Anion Gap 6 mmol/L; Blood Urea Nitrogen 37 mg/dL (9-20); Calcium 8.8 mg/dL (8.4-10.2); Carbon Dioxide 33 mmol/L (22-30); Chloride 97 mmol/L (98-107); Glucose 159 mg/dL (74-99); Non-African American GFR(CKD) 27 (>60 ml/min/1.73 sqM); Potassium 3.6 mmol/L (3.5-5.1); Sodium 136 mmol/L (137-145)
--- NOTE | 2021-12-10 15:26 | P.DS ---
Providers Date of admission: 12/05/21 18:10 Expected date of discharge: 12/10/21 Attending physician: Krzysztof Mosley Consults: 12/05/21 18:10 Consult Physician Routine Consulting Provider: Ashely Heredia Consult Reason/Comments: CKD, fluid overload Do you want consulting provider notified?: Yes Primary care physician: Elia Sanchez MD Hospital Course: Chief Complaint: Increasing edema This is a very pleasant 71-year-old patient of Dr. Elia Sanchez. 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 Patient is accompanied by his in the room He has had chronic edema but has been noticing increasing swelling of the lower extremity. Yesterday became increasingly short of breath. No fever no chills. No cough. Found to be in CHF. Patient also has chronic lower extremity venous insufficiency and blisters for which she was a split wound care center. Patient to receive IV Lasix to which she is feeling better. Appetite is fair. Admitted with CHF exacerbation. IV Lasix. About 98 is in negative fluid balance. Edema came down nicely. Breathing much improved. Patient is was changed to Novolin 70/30. Dose adjusted. Today: Novolin 70/30 and diet discussed. Explained that is physiologically bet ter. Patient to maintain a log. Care was discussed. By mouth Demadex 20 mg twice a day. 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 Alcohol rarely. . Family history: Reviewed, noncontributory to presentation Physical examination: VITAL SIGNS: 98.2, 76, 16, 146/56, 94% room air GENERAL: Up in a chair, breathing better EYES: Left eye blind. Right eye normal HEENT: External appearance of nose and ears normal, oral cavity grossly normal. NECK: JVD raised; masses not palpable. HEART: First and second heart sounds are normal; edema present. LUNGS: Respiratory rate normal; decreased breath sounds. ABDOMEN: Soft, nontender, liver spleen not palpable, no masses palpable. PSYCH: Answering appropriate questions MUSCULOSKELETAL:No Clubbing/cyanosis;muscles-grossly intact. Evidence of OA LOWER extremity: Dressing up to the knee INVESTIGATIONS, reviewed in the clinical context: December 10: Potassium 3.6 creatinine 2.34 TIBC 255 ferritin 472 2-D echocardiogram: Severe concentric LVH, EF 55-60% Admission labs: White count 6.8 hemoglobin 8.9 potassium 4.7 BUN 42 creatinine 2.06 ProBNP 3590 EKG tracing personally reviewed by me-atrial fibrillation rate 55 Chest x-ray film personally reviewed by me-cardiomegaly, pulmonary edema Assessment and plan: -Acute on chronic congestive heart failure exacerbation from diastolic dysfunction EF 55-60%: Better Demadex 20 mg twice a day -CAD with a prior history of stent last one being about 5 years ago. Patient does follow with cardiology Dr. Santos Aspirin, Coreg 6.25 twice a day -Chronic kidney disease stage III secondary to diabetic kidney disease the baseline creatinine of 1.7 Follow-up with nephrology -Acute kidney injury associated with cardiorenal syndrome. -Hyperuricemia Allopurinol 100 mg daily at bedtime -Hyperlipidemia Lipitor 80 mg daily at bedtime -GERD Protonix 40 mg daily -Diabetes mellitus type 2 chronically on insulin, uncontrolled with hypoglycemia Decrease Novolin 70/30. 16 units before meals twice a day and 6 units with lunch Depression Celexa 10 mg a day Disposition: Home BNP: 5 days Plan - Discharge Summary New Discharge Prescriptions: New Aspirin 81 mg PO DAILY #30 tab Insuln Asp Prt/Insulin Aspart [NovoLOG MIX 70-30 VIAL] 6 unit SQ AC-LUNCH #1 ml Insuln Asp Prt/Insulin Aspart [NovoLOG MIX 70-30 VIAL] 16 unit SQ AC-BID #1 ml Continue Multivitamins, Thera [Multivitamin (formulary)] 1 tab PO DAILY Brimonidine Tartrate/Timolol [Combigan 0.2%/0.5% Ophth Soln] 1 drop RIGHT EYE BID Brinzolamide [Azopt 1% Ophth Susp] 1 drop RIGHT EYE BID Isosorbide Mononitrate ER [Imdur] 60 mg PO DAILY INSULIN ASPART (NovoLOG) [NovoLOG (formulary)] See Protocol SQ AC-TID Atorvastatin Calcium [Lipitor] 80 mg PO HS Magnesium Oxide [Mag-Ox] 800 mg PO TID Vit C/E/Zn/Coppr/Lutein/Zeaxan [Preservision Areds 2 Softgel] 2 cap PO DAILY Potassium Chloride [Klor-Con M20] 20 meq PO BID Ferrous Sulfate [Iron (65 MG Elemental)] 325 mg PO Q48H Acetaminophen [Tylenol 8 Hour] 650 mg PO Q8H PRN PRN Reason: Fever And/ Or Pain Pantoprazole Sodium [Protonix] 40 mg PO DAILY carvediloL [Coreg] 6.25 mg PO BID Citalopram Hydrobromide [CeleXA] 10 mg PO DAILY allopurinoL [Zyloprim] 100 mg PO HS Changed Torsemide [Demadex] 20 mg PO BID #60 tab Discontinued Insulin NPH Human Isophane [humuLIN N] 25 units SQ BID Aspirin EC [Ecotrin] 325 mg PO DAILY Discharge Medication List Atorvastatin Calcium [Lipitor] 80 mg PO HS 10/22/15 [History] Brimonidine Tartrate/Timolol [Combigan 0.2%/0.5% Ophth Soln] 1 drop RIGHT EYE BID 10/22/15 [History] Brinzolamide [Azopt 1% Ophth Susp] 1 drop RIGHT EYE BID 10/22/15 [History] INSULIN ASPART (NovoLOG) [NovoLOG (formulary)] See Protocol SQ AC-TID 10/22/15 [History] Isosorbide Mononitrate ER [Imdur] 60 mg PO DAILY 10/22/15 [History] Multivitamins, Thera [Multivitamin (formulary)] 1 tab PO DAILY 10/22/15 [History] Magnesium Oxide [Mag-Ox] 800 mg PO TID 09/09/18 [History] Acetaminophen [Tylenol 8 Hour] 650 mg PO Q8H PRN 12/05/21 [History] Citalopram Hydrobromide [CeleXA] 10 mg PO DAILY 12/05/21 [History] Ferrous Sulfate [Iron (65 MG Elemental)] 325 mg PO Q48H 12/05/21 [History] Pantoprazole Sodium [Protonix] 40 mg PO DAILY 12/05/21 [History] Potassium Chloride [Klor-Con M20] 20 meq PO BID 12/05/21 [History] Vit C/E/Zn/Coppr/Lutein/Zeaxan [Preservision Areds 2 Softgel] 2 cap PO DAILY 12/05/21 [History] allopurinoL [Zyloprim] 100 mg PO HS 12/05/21 [History] carvediloL [Coreg] 6.25 mg PO BID 12/05/21 [History] Aspirin 81 mg PO DAILY #30 tab 12/10/21 [Rx] Insuln Asp Prt/Insulin Aspart [NovoLOG MIX 70-30 VIAL] 6 unit SQ AC-LUNCH #1 ml 12/10/21 [Rx] Insuln Asp Prt/Insulin Aspart [NovoLOG MIX 70-30 VIAL] 16 unit SQ AC-BID #1 ml 12/10/21 [Rx] Torsemide [Demadex] 20 mg PO BID #60 tab 12/10/21 [Rx] Follow up Appointment(s)/Referral(s): Ashely Heredia MD [STAFF PHYSICIAN] - 2 Weeks (office not answering Please call to schedule appointment ) [facility] [NON-STAFF] - As Needed Elia Sanchez MD [Primary Care Provider] - 12/11/21 7:30 am () Patient Instructions/Handouts: Heart Failure (DC) Discharge Disposition: HOME WITH HOME HEALTH SERVICES
--- NOTE | 2021-12-10 16:28 | PN ---
PROGRESS NOTE Patient is seen for followup for the patient is seen for followup for CKD. He did have mild acute kidney injury. Renal function is fairly stable. His serum creatinine staying at about 2 mg/dL. PHYSICAL EXAMINATION: On examination today, blood pressure is 146/56, heart rate 63 per minute. Patient is afebrile. Examination of the heart S1, S2. Examination of the lungs, bilateral breath sounds are heard. Abdomen is soft, nontender. Examination of lower extremities shows chronic skin changes, chronic edema. EPIC SPECIALIST exam grossly intact. LAB: Show sodium 136, potassium 3.6. BUN 37, creatinine 2.34. ASSESSMENT: 1. Chronic kidney disease NKF stage 3B secondary to diabetic kidney disease baseline creatinine 1.7-1.8 mg/dL. 2. Acute kidney injury associated with cardiorenal syndrome, maintained on IV Lasix, switch to p.o. Lasix yesterday. 3. Fluid overload currently improved. 4. Acute on chronic diastolic congestive heart failure with mild to moderate mitral regurgitation. 5. Anemia of chronic disease with iron deficiency. PLAN: Follow up as outpatient in 1-2 weeks. Continue with Lasix 60 mg p.o. b.i.d. instead of torsemide. MMODL / IJN: [id number] /
== END 2021-12-10 13:04 | disposition home health service (06) | DRG 291 ==
LOC: EC 14:18 → 4SSUR 18:10
PROVIDERS: ADMIT Hospitalist; ATTEND Hospitalist
DX: I13.0 Hypertensive heart and chronic kidney disease with heart failure and stage 1 through stage 4 chronic kidney disease, or unspecified chronic kidney disease (principal); I50.33 Acute on chronic diastolic (congestive) heart failure; N17.9 Acute kidney failure, unspecified; E11.649 Type 2 diabetes mellitus with hypoglycemia without coma; D63.1 Anemia in chronic kidney disease; E11.22 Type 2 diabetes mellitus with diabetic chronic kidney disease; D50.9 Iron deficiency anemia, unspecified; N18.32 Chronic kidney disease, stage 3b; Z79.4 Long term (current) use of insulin; I48.91 Unspecified atrial fibrillation; E79.0 Hyperuricemia without signs of inflammatory arthritis and tophaceous disease; E78.5 Hyperlipidemia, unspecified; F32.A Depression, unspecified; K21.9 Gastro-esophageal reflux disease without esophagitis; I25.10 Atherosclerotic heart disease of native coronary artery without angina pectoris; I34.0 Nonrheumatic mitral (valve) insufficiency; H54.62 Unqualified visual loss, left eye, normal vision right eye; M19.90 Unspecified osteoarthritis, unspecified site; I87.2 Venous insufficiency (chronic) (peripheral); S80.829A Blister (nonthermal), unspecified lower leg, initial encounter; Z79.82 Long term (current) use of aspirin; Z79.899 Other long term (current) drug therapy; Z86.69 Personal history of other diseases of the nervous system and sense organs; Z95.5 Presence of coronary angioplasty implant and graft; Z87.39 Personal history of other diseases of the musculoskeletal system and connective tissue; Z90.89 Acquired absence of other organs; Z98.42 Cataract extraction status, left eye; Z98.41 Cataract extraction status, right eye; Z96.652 Presence of left artificial knee joint; Z98.890 Other specified postprocedural states; Z88.1 Allergy status to other antibiotic agents; Z88.0 Allergy status to penicillin
CPT/HCPCS: 36415; 71046; 76770; 80048; 80053; 81003; 82728; 83036; 83540; 83550; 83735; 83880; 85025; 85610; 85730; 93005; 93306; 94760; 96374; 99285

== ENCOUNTER → 2025-01-24 | Outpatient (CLI) | payer MEDICARE ==
--- NOTE | 2025-01-28 21:59 | NM ---
EXAMINATION TYPE: NM DatScan Brain SPECT DATE OF EXAM: 01/24/2025 COMPARISON: NONE CLINICAL INDICATION: Male, 74 years old with history of R25.1 TREMOR R29.898 COGWHEEL RIGIDITY; TECHNIQUE: 10 drops of Lugol's solution was administered 1 hour prior to injection as a thyroid bloc jody agent. After the administration of 5 mCi I-123 Ioflupane DaTscan. Images obtained 3 hours post injection. SPECT images of the brain were acquired with axial and coronal reconstructions. FINDINGS: The DaTSCAN demonstrates normal uptake of tracer throughout the striata. Consequently there is no evidence of loss of the pre-synaptic dopaminergic terminals on this investigation. IMPRESSION: This normal appearance is against a diagnosis of idiopathic Parkinson?s disease (PD) or a Parkinsonian syndrome(PS) and is seen in healthy individuals and also patients with essential tremor(ET), drug induced parkinsonism, and vascular pseudo-parkinsonism. [facility], , 01/28/2025 9:57 PM
== END | disposition home or self-care (01) ==
LOC: RADNMMAIN 07:40
PROVIDERS: ATTEND Psychiatry & Neurology Neurology
DX: G25.0 Essential tremor (principal); R29.898 Other symptoms and signs involving the musculoskeletal system; G21.19 Other drug induced secondary parkinsonism
CPT/HCPCS: 78803; A9584